=== PATIENT | female | born 1955 | race Caucasian/White ===

== ENCOUNTER → 2017-04-13 | Outpatient (CLI) | payer MEDICARE ==
[~2017-04-13] MED LIST: ALPRAZOLAM0.25 MG PO; HYDROCODON-ACE1 EAC9 PO; METOPROLOL TART50 MG PO; REGADENOSON 0.4 MG/5 ML SYR IV ONE; WARFARIN SODIUM3 MG PO
--- NOTE | 2017-04-13 10:51 | Consultation ---
Incomplete dictation. See full dictation. Job#: [id number] RI cc: HELDER JENKINS MD MTDAnn
--- NOTE | 2017-04-13 11:07 | Consultation ---
DATE OF CONSULTATION: April 13, 2017 CARDIOLOGY CONSULTATION REQUESTING PHYSICIAN: Fabien Shen MD REASON FOR CONSULTATION: Abnormal EKG. HISTORY OF PRESENT ILLNESS: This is a 61-year-old woman who has a history of hypertension, hyperlipidemia, diabetes mellitus, and anxiety, who presents for a nuclear stress test. She was undergoing preop evaluation for a cochlear implant when she was noted to have an abnormal EKG. She was, therefore, sent for a nuclear stress test. She denies any chest pain, shortness of breath, palpitations, edema, orthopnea or PND. REVIEW OF SYSTEMS: Negative, except as per HPI. PAST MEDICAL HISTORY: Hypertension, hyperlipidemia, diabetes mellitus, anxiety, chronic kidney disease. PAST SURGICAL HISTORY: Hernia surgery, cholecystectomy, nose surgery, right hip surgery, bilateral knee surgery. ALLERGIES: PLEASE SEE EMR. MEDICATIONS: Please see medication list. SOCIAL HISTORY: Denies tobacco, alcohol, or illicit drugs. FAMILY HISTORY: Unknown. The patient was adopted. PHYSICAL EXAMINATION Vitals reviewed. GENERAL: Awake, alert, in no acute distress. HEENT: Normocephalic and atraumatic. Pupils are equal. No scleral icterus. NECK: Supple. No thyromegaly or cervical lymphadenopathy. No carotid bruit. LUNGS: Clear to auscultation bilaterally. No wheezes or crackles. CARDIOVASCULAR: Normal rate, regular rhythm. A 2/6 systolic murmur noted at the right upper sternal border. Normal S1 and S2. ABDOMEN: Soft. Nontender. EXTREMITIES: No edema. NEURO: Nonfocal exam. Extremely hard of hearing. IMPRESSION 1. Abnormal electrocardiogram. 2. Hypertension. 3. Hyperlipidemia. 4. Diabetes mellitus. RECOMMENDATIONS: Given the patient's risk factors, we will proceed with pharmacologic nuclear stress test for further evaluation. Consider echocardiogram. Thank you for this consult. We will continue to follow. RAUDEL BUSBY MD Job#: [id number] JONNIE
--- NOTE | 2017-04-13 16:21 | Cardiology Report ---
DATE OF STUDY: April 13, 2017 PROCEDURE TITLE Rest stress single isotope SPECT imaging with pharmacologic stress and gated SPECT imaging. INDICATIONS: Abnormal EKG. PROCEDURE: Pharmacologic stress testing was performed with regadenoson per protocol. Heart rate was 82 beats per minute at rest and increased to 117 beats per minute during the regadenoson infusion. The rest blood pressure was 130/80 and decreased to 99/62 mmHg, which is a normal response. The patient did not develop any significant symptoms. The myocardial perfusion imaging was performed at rest following the injection of 10.8 mCi of tetrofosmin. At peak pharmacologic effect the patient was injected with 30.1 mCi of tetrofosmin. Gated post stress tomographic imaging was performed. FINDINGS: Overall quality of this study is fair. Attenuation artifact is absent. Left ventricular cavity is noted to be normal size on rest and stress studies. SPECT images demonstrate homogenous tracer distribution throughout the myocardium. Gated SPECT imaging reveals normal myocardial thickening and wall motion. The left ventricular ejection fraction was calculated to be 64%. IMPRESSION: Myocardial perfusion imaging is normal. Overall left ventricular systolic function was normal without regional wall motion abnormalities. Job#: [id number] GH cc:HELDER JENKINS MD
== END ==
LOC: NM 07:39
PROVIDERS: ATTEND Family Medicine
DX: Z01.810 Encounter for preprocedural cardiovascular examination (principal)
CPT/HCPCS: 78452; 93017; A9502

== ENCOUNTER 2018-07-20 05:06 | Emergency (ER) | payer MEDICARE ==
[~2018-07-20] VITALS: Ht 152.4 cm; Wt 77.1 kg
[~2018-07-20 05:06] MED LIST changes: -REGADENOSON 0.4 MG/5 ML SYR IV ONE
--- OUTSIDE RECORDS SUMMARY | 2018-07-20 05:10 | XMS REPORT ---
Author Author [facility] [place] Address Unknown Phone Unavailable Care Team Providers Care Bilingual Legal Assistant Name Role Phone Mel JENKINS Unavailable Unavailable Problems This patient has no known problems. Allergies, Adverse Reactions, Alerts This patient has no known allergies or adverse reactions. Medications This patient has no known medications. Results Test Description Test Time Test Comments Text Results Atomic Results Result Comments Stress Test - Treadmill ONLY [place] [address] Patient Name : KATE RICO MR #: [id number] : 1955 Age/Sex: 61/F Adm Physician : HELDER JENKINS MD Admit Date : Location : [place] Room/Bed : REPORT: Cardiology Report DATE OF STUDY: April 13, 2017 PROCEDURE TITLE Rest stress single isotope SPECT imaging with pharmacologic stress and gated SPECT imaging. INDICATIONS: Abnormal EKG. PROCEDURE: Pharmacologic stress testing was performed with regadenoson per protocol. Heart rate was 82 beats per minute at rest and increased to 117 beats per minute during the regadenoson infusion. The rest blood pressure was 130/80 and decreased to 99/62 mmHg, which is a normal response. The patient did not develop any significant symptoms. The myocardial perfusion imaging was performed at rest following the injection of 10.8 mCi of tetrofosmin. At peak pharmacologic effect the patient was injected with 30.1 mCi of tetrofosmin. Gated post stress tomographic imaging was performed. FINDINGS: Overall quality of this study is fair. Attenuation artifact is absent. Left ventricular cavity is noted to be norm al size on rest and stress studies. SPECT images demonstrate homogenous tracer distribution throughout the myocardium. Gated SPECT imaging reveals normal myocardial thickening and wall motion. The left ventricular ejection fraction was calculated to be 64%. IMPRESSION: Myocardial perfusion imaging is normal. Overall left ventricular systolic function was normal without regional wall motion abnormalities. Job#: [id number] GH cc: HELDER JENKINS MD Signature Date Dictated By: RAUDEL BUSBY MD Transcribed By: PATRICIO on 04/13/17 <Electronically signed by RAUDEL BUSBY MD><<Signature on File>>05/17/17 1065 COPY TO:
== END 2018-07-20 05:21 | disposition left against medical advice (07) ==
LOC: ER 05:06
DX: R52 Pain, unspecified (principal)

== ENCOUNTER 2018-07-20 10:48 | Emergency (ER) | payer MEDICARE ==
[~2018-07-20] VITALS: Ht 152.4 cm; Wt 77.1 kg
== END 2018-07-20 11:14 | disposition left against medical advice (07) ==
LOC: ER 10:48
DX: R52 Pain, unspecified (principal)

== ENCOUNTER 2018-07-23 16:10 | Observation (INO) | payer MEDICARE ==
[~2018-07-23] VITALS: Ht 152.4 cm; Wt 66.3 kg
[2018-07-23] MEDS ORDERED: DIATRIZOATE MEGL/DIATRIZOA SOD 30 ML BTL PO ONE (16:41)
[2018-07-23] MEDS ORDERED: SODIUM CHLORIDE 0.9% 500ML 500 ML IV ONE (16:45)
--- NOTE | 2018-07-23 16:59 | Diagnostic Imaging Report ---
Examination: Single AP view of the chest. COMPARISON: None. INDICATION: Abdominal pain DISCUSSION: Lines/tubes: None. Lungs: The lungs are well inflated and clear. No pneumonia or pulmonary edema. Pleura: Left-sided pleural thickening. No pneumothorax. Heart and mediastinum: The heart and the mediastinum are unremarkable. Bones and soft tissues: Prior left chest wall deformity IMPRESSION: 1. No acute cardiopulmonary abnormalities. Signed by: Dr. Bari Joy M.D. on 07/23/2018 4:56 PM
[2018-07-23 18:45] LABS: BASOPHILS # (AUTO) 0.1 (0.0-0.1); BASOPHILS % 0.2 % (0.0-1.0); EOSINOPHILS # (AUTO) 0.1 (0.0-0.4); EOSINOPHILS % 0.3 % (0.0-6.0); HEMATOCRIT 41.3 % (34.2-44.1); LYMPHOCYTES # (AUTO) 1.4 (1.0-3.2); LYMPHOCYTES % 6.1 % (18.0-39.1); MEAN CORPUSCULAR HEMOGLOBIN 32.4 pg (28-32); MEAN CORPUSCULAR HGB CONC 33.9 g/dL (31-35); MEAN CORPUSCULAR VOLUME 95.6 fL (81-99); MONOCYTES # (AUTO) 1.2 (0.2-0.8); MONOCYTES % 5.3 % (4.4-11.3); NEUTROPHILS # (AUTO) 19.6 (2.1-6.9); NEUTROPHILS % 87.4 % (38.7-80.0); PLATELET COUNT 283 x10e3/uL (140-360); RED BLOOD COUNT 4.32 x10e6/uL (3.6-5.1); RED CELL DISTRIBUTION WIDTH 12.7 % (11.7-14.4)
[2018-07-23 18:54] LABS: INR 0.81; PROTHROMBIN TIME 11.7 seconds (11.9-14.5)
[2018-07-23 18:55] LABS: PARTIAL THROMBOPLASTIN TIME 27.6 seconds (23.8-35.5)
[2018-07-23 19:03] LABS: ALBUMIN 3.9 g/dL (3.5-5.0); ALBUMIN/GLOBULIN RATIO 1.3 (0.8-2.0); CALCIUM 9.8 mg/dL (8.4-10.2); CREATININE, SERUM 1.98 mg/dL (0.57-1.11); MAGNESIUM 2.1 MG/DL (1.3-2.1)
[2018-07-23 19:09] LABS: CREATINE KINASE MB 9.4 ng/mL (0-5.0)
[2018-07-23 19:30] LABS: BILIRUBIN,URINE NEGATIVE (NEGATIVE); CLARITY,URINE CLEAR (CLEAR); COLOR,URINE YELLOW (YELLOW); KETONES,URINE NEGATIVE (NEGATIVE); LEUKOCYTE ESTERASE ,URINE NEGATIVE (NEGATIVE); NITRITE,URINE NEGATIVE (NEGATIVE); PROTEIN,URINE DIPSTICK TRACE (NEGATIVE); URINE UROBILINOGEN 0.2 mg/dL (0.2 - 1)
[2018-07-23 19:46] LABS: BACTERIA,URINE FEW /HPF; EPITHELIAL CELLS,URINE FEW /LPF; RBC,URINE 0-5 /HPF (0-5)
--- NOTE | 2018-07-23 19:56 | Diagnostic Imaging Report ---
EXAMINATION: CT of the abdomen and pelvis without contrast. TECHNIQUE: Helical CT images of the abdomen and pelvis were performed from the lung bases to the lesser trochanters. No intravenous contrast was given per protocol. Positive enteric contrast administered. Coronal and sagittal reformatted images were obtained.Dose modulation, iterative reconstruction, and/or weight based adjustment of the mA/kV was utilized to reduce the radiation dose to as low as reasonably achievable. COMPARISON: None. CLINICAL HISTORY:Abdominal pain DISCUSSION: ABSENCE OF INTRAVENOUS CONTRAST DECREASES SENSITIVITY FOR DETECTION OF FOCAL LESIONS AND VASCULAR PATHOLOGY. ABDOMEN/PELVIS: LOWER THORAX: Unremarkable. HEPATOBILIARY:No focal hepatic lesions. No biliary ductal dilatation. Cholecystectomy. SPLEEN: No splenomegaly. PANCREAS: No focal masses or ductal dilatation. ADRENALS: No adrenal nodules. KIDNEYS/URETERS: Atrophic kidneys. No obstruction. Subcentimeter hyperdense cyst in the left kidney. PELVIC ORGANS/BLADDER: Bladder is decompressed. Hysterectomy. PERITONEUM/RETROPERITONEUM: No free air or fluid. LYMPH NODES: No intra-abdominal,retroperitoneal, pelvic or inguinal lymphadenopathy. VESSELS: Vascular calcifications. GI TRACT: No distention or wall thickening. BONES AND SOFT TISSUES: Right total hip arthroplasty. Left hip degenerative arthrosis. Bone demineralization. Lower lumbar facet arthrosis. IMPRESSION: No acute CT finding. Signed by: Dr. Bari Joy M.D. on 07/23/2018 7:53 PM
[2018-07-23] MEDS ORDERED: SODIUM CHLORIDE 0.9% 1000ML 1,000 ML IV ONE (20:30)
[2018-07-23] MEDS ORDERED: ASPIRIN 81 MG CHEW TAB PO NR (20:30)
[2018-07-23] MEDS ORDERED: SUCRALFATE1 GM PO (22:02)
[2018-07-23] MEDS ORDERED: TEMAZEPAM30 MG PO (22:02)
[2018-07-23] MEDS: MORPHINE SULFATE INJ 4 MG/ML INJ 1ML IV PRN (22:14)
[2018-07-23] MEDS: PIPERACILLIN/TAZO 2.25 GM 50 ML IV SCH ×2 (22:14→22:42)
[2018-07-23] MEDS: ONDANSETRON HCL INJ 2MG/ML 2ML 2 MG/ML VIAL IV PRN (22:15)
--- NOTE | 2018-07-23 23:14 | NUR ---
Received report from [facility] ER nurse. Patient arrived via stretcher from CT. Patient is A&Ox3. Call light within reach.
--- NOTE | 2018-07-23 23:43 | Diagnostic Imaging Report ---
EXAM: CT Chest WITHOUT contrast INDICATION: ^R/O PNA ^[id number] ^2300 COMPARISON: Same day chest x-ray. TECHNIQUE: Chest was scanned utilizing a multidetector helical scanner from the lung apex through the level of the adrenal glands without administration of IV contrast. Absence of intravenous contrast decreases sensitivity for detection of lymphadenopathy and vascular pathology. Coronal and sagittal reformations were obtained. Routine protocol was performed. IV CONTRAST: None COMPLICATIONS: None RADIATION DOSE: Total DLP: mGy*cm Estimated effective dose: (DLP x 0.014 x size factor) mSv CTDIvol has been reviewed. It is below the limits set by the Radiation Protocol Committee (RPC). FINDINGS: LINES/ TUBES: None. LUNGS AND AIRWAYS: Hyperinflated lungs. Mild biapical scarring. Few tiny scattered calcified granulomas are seen. No focal consolidation. Bibasilar linear atelectasis/scarring. Airways are normal. PLEURA: The pleural spaces are clear. HEART AND MEDIASTINUM: Subcentimeter right thyroid lobe nodule. No mediastinal, hilar or axillary lymphadenopathy. The heart is normal in size.. There is no pericardial effusion. There are significant atherosclerotic calcifications in the coronary arteries. UPPER ABDOMEN: Hepatic and splenic calcified granulomas. Subcentimeter left renal superior pole hyperdensity, likely a hemorrhagic/proteinaceous cyst. Punctate left renal superior pole calculus. BONES: Generalized demineralization. Exaggerated kyphosis of the thoracic spine. Degenerative changes of thoracic spine. SOFT TISSUES: Unremarkable. IMPRESSION: No evidence of pneumonia. Evidence of prior granulomatous disease. Signed by: Dr. Jose Cox MD on 07/23/2018 11:40 PM
[2018-07-23] MEDS ORDERED: TIZANIDINE HCL4 MG PO (23:58)
[2018-07-23] MEDS ORDERED: ONDANSETRON ODT8 MG PO (23:58)
[2018-07-24] VITALS (10 sets, daily range): BP systolic 98–136; BP diastolic 55–64
[2018-07-24] MEDS: ONDANSETRON HCL INJ 2MG/ML 2ML 2 MG/ML VIAL IV PRN ×2 (02:58→17:50)
[2018-07-24 03:19] LABS: ALBUMIN/GLOBULIN RATIO 1.3 (0.8-2.0); ANION GAP 13.1 mmol/L (8-16); CALCIUM 8.7 mg/dL (8.4-10.2); CREATININE, SERUM 1.75 mg/dL (0.57-1.11); POTASSIUM 4.1 mmol/L (3.5-5.1)
[2018-07-24 03:20] LABS: ALBUMIN 3.1 g/dL (3.5-5.0)
[2018-07-24] MEDS: MORPHINE SULFATE INJ 4 MG/ML INJ 1ML IV PRN (04:05)
[2018-07-24 04:31] LABS: CREATINE KINASE MB 4.7 ng/mL (0-5.0)
[2018-07-24 05:26] LABS: BASOPHILS % 0.2 % (0.0-1.0); EOSINOPHILS % 0.3 % (0.0-6.0); HEMATOCRIT 33.4 % (34.2-44.1); LYMPHOCYTES # (AUTO) 1.1 (1.0-3.2); LYMPHOCYTES % 8.9 % (18.0-39.1); MEAN CORPUSCULAR HEMOGLOBIN 32.2 pg (28-32); MEAN CORPUSCULAR HGB CONC 32.9 g/dL (31-35); MEAN CORPUSCULAR VOLUME 97.7 fL (81-99); MONOCYTES # (AUTO) 1.2 (0.2-0.8); MONOCYTES % 9.7 % (4.4-11.3); NEUTROPHILS % 80.2 % (38.7-80.0); PLATELET COUNT 216 x10e3/uL (140-360); RED BLOOD COUNT 3.42 x10e6/uL (3.6-5.1); RED CELL DISTRIBUTION WIDTH 12.8 % (11.7-14.4)
[2018-07-24] MEDS: PIPERACILLIN/TAZO 2.25 GM 50 ML IV SCH ×4 (05:35→23:34)
--- NOTE | 2018-07-24 07:04 | NUR ---
Got report from oncoming nurse. Call light within reach. patient in bed.
--- NOTE | 2018-07-24 07:45 | NUR ---
GAVE REPORT TO ONCOMING NURSE. CALL LIGHT WITHIN REACH. PATIENT IN BED.
--- NOTE | 2018-07-24 08:32 | History and Physical ---
A 63-year-old lady with abdominal pain. HISTORY OF PRESENTING ILLNESS: This is a 63-year-old MsBolivar Esposito with a history of hypertension, hyperlipidemia, history of hard of hearing, and low back pain and DVTs, was in the usual state of health until the patient started to have abdominal pain, intractable 8/10 in intensity. She was told to come into the ER. The patient was admitted for leukocytosis and antibiotics were started. The patient's microbiology is pending. PAST MEDICAL HISTORY: Again hypertension, history of reflux esophagitis, history of insomnia, history of anxiety, and history of DVTs in the past. MEDICINES: She takes at home are alprazolam 0.25 mg twice a day, hydrocodone as needed, metoprolol 50 mg q.12 hours as needed, Carafate 1 g twice a day, temazepam 30 mg at nighttime, and warfarin 3 mg daily. PAST SURGICAL HISTORY: History of bilateral mastectomy, cholecystectomy, left knee surgery, and tonsillectomy. FAMILY HISTORY: Cancer and diabetes and also history of hypertension in the family. ADVERSE REACTIONS: The patient has azithromycin and also tetracycline. REVIEW OF SYSTEMS: Negative for chest pain. Positive for abdominal pain. Positive for nausea. No vomiting. No diarrhea. No constipation. No rectal bleeding. No hematochezia. No hematemesis. Positive for multiple arthritic pains and arthralgias. The patient complains of low back pain too. PHYSICAL EXAMINATION: VITAL SIGNS: Temperature is 96.7, pulse of 79, respirations of 18, blood pressure is 98/58 at this time after pain medications has been given. CVS: S1, S2 normal. Regular rate and rhythm. LUNGS: Clear to auscultation bilaterally. ABDOMEN: Tender in the epigastrium. EXTREMITIES: No clubbing, no cyanosis, no edema. LABORATORY VALUES: Initial white count is 22,000 down to 12.53. There was left shift present, is better with Zosyn. Chemistries; sodium 136, potassium 4.0, BUN of 32, creatinine of 1.9, and estimated GFR of 25. Coags were normal. CT scan of chest showed no evidence of pneumonia, evidence of prior granulomatous diseases, and abdominal CT shows no acute CT findings either. ASSESSMENT: 1. Leukocytosis, abdominal pain. 2. Blood cultures are pending. Urine cultures pending. Urine was essentially negative too. 3. History of hypertension. Continue antihypertensive. 4. History of back pain. We will monitor her pain medication and watch for hypertensive episode. PLAN: 1. Continue Zosyn, which she has been started for leukocytosis and abdominal pain. 2. Follow up with microbiology results. Plan is to keep the patient on observation still and depending on her blood work tomorrow, we will continue to monitor the patient. Further recommendation per clinical course. MD KATHARINA Reyes/MODL /[id number]
[2018-07-24] MEDS ORDERED: PANTOPRAZOLE 40 MG 10ML VIAL IV SCH (09:00)
--- NOTE | 2018-07-24 09:59 | Diagnostic Imaging Report ---
EXAM: US GALLBLADDER DATE: 07/24/2018 7:00 AM Time stamp on exam: INDICATION: Upper abdominal pain, leukocytosis COMPARISON: CT abdomen and pelvis 07/23/2018 TECHNIQUE: Transverse and longitudinal lopez scale and color doppler sonographic images of the upper abdomen were obtained. FINDINGS: LIVER 11 cm in the right midclavicular line. Normal echogenicity, normal contour, no masses. GALLBLADDER Surgically absent. BILE DUCTS No intra nor extra-hepatic biliary dilation. Common bile duct measures 0.4 cm PANCREAS: Visualized portions are normal. RIGHT KIDNEY: 8.5 cm Echogenicity: Normal Collecting System: No hydronephrosis Stones: None Cyst/Mass: None VESSELS: Aorta: Nonaneurysmal Inferior Vena Cava: Patent Main Portal Vein: 0.8 cm, normal size with hepatopetal flow. FREE FLUID: None IMPRESSION: Status post cholecystectomy. Diminutive right kidney. Otherwise unremarkable right upper quadrant ultrasound. Signed by: Dr. Gurinder Mccauley M.D. on 07/24/2018 9:56 AM
[2018-07-24] MEDS ORDERED: DIPHENOXYLATE/ATROPINE TAB PO PRN (11:15)
[2018-07-24 12:11] LABS: CREATINE KINASE MB 3.6 ng/mL (0-5.0)
[2018-07-24] MEDS ORDERED: PANTOPRAZOLE INJ 40 MG in SODIUM CHLORIDE 0.9% 50ML 50 ML IV SCH (18:00)
--- NOTE | 2018-07-24 18:40 | NUR ---
rounded with night shift supervisor nurse, patient resting comfortably and in no distress. call david within reach and bed in lowest position.
[2018-07-24] MEDS: PANTOPRAZOL 40MG/SOD CHL 0.9% 50 ML IV SCH ×2 (19:07→21:48)
[2018-07-24] MEDS: SUCRALFATE 1 GM TAB PO SCH (21:04)
[2018-07-25] VITALS: BP 102/53
[2018-07-25 04:00] VITALS: BP 115/58
[2018-07-25] MEDS: PANTOPRAZOL 40MG/SOD CHL 0.9% 50 ML IV SCH (04:10)
[2018-07-25] MEDS: PIPERACILLIN/TAZO 2.25 GM 50 ML IV SCH (05:03)
[2018-07-25] MEDS: MORPHINE SULFATE INJ 4 MG/ML INJ 1ML IV PRN (05:28)
[2018-07-25 06:11] LABS: BASOPHILS % 0.3 % (0.0-1.0); EOSINOPHILS # (AUTO) 0.1 (0.0-0.4); EOSINOPHILS % 0.9 % (0.0-6.0); HEMATOCRIT 35.7 % (34.2-44.1); HEMOGLOBIN 11.7 g/dL (12.0-16.0); LYMPHOCYTES # (AUTO) 1.2 (1.0-3.2); LYMPHOCYTES % 11.4 % (18.0-39.1); MEAN CORPUSCULAR HEMOGLOBIN 32.1 pg (28-32); MEAN CORPUSCULAR HGB CONC 32.8 g/dL (31-35); MEAN CORPUSCULAR VOLUME 97.8 fL (81-99); MONOCYTES # (AUTO) 1.1 (0.2-0.8); MONOCYTES % 10.7 % (4.4-11.3); NEUTROPHILS % 76.1 % (38.7-80.0); PLATELET COUNT 237 x10e3/uL (140-360); RED BLOOD COUNT 3.65 x10e6/uL (3.6-5.1); RED CELL DISTRIBUTION WIDTH 12.7 % (11.7-14.4)
[2018-07-25 06:27] LABS: INR 0.92; PROTHROMBIN TIME 12.9 seconds (11.9-14.5)
[2018-07-25 06:34] LABS: ALBUMIN 3.2 g/dL (3.5-5.0); ALBUMIN/GLOBULIN RATIO 1.2 (0.8-2.0); ANION GAP 12.6 mmol/L (8-16); CALCIUM 9.3 mg/dL (8.4-10.2); CREATININE, SERUM 1.71 mg/dL (0.57-1.11); MAGNESIUM 2.1 MG/DL (1.3-2.1); POTASSIUM 4.6 mmol/L (3.5-5.1)
--- NOTE | 2018-07-25 06:45 | NUR ---
rounded with library helper nurse, patient aware of change and in no distress. call david within reach and bed in lowest position
--- NOTE | 2018-07-25 07:13 | Progress Note ---
DATE: SUBJECTIVE: A 63-year-old comes in with acute enteritis and colitis. The patient is currently on Lomotil. Diarrhea has stopped. The patient was on Zofran for nausea and nausea has dissipated. Continuous pantoprazole drip and Zosyn have been reinstituted. The patient is also on Carafate 1 g three times a day. OBJECTIVE: VITAL SIGNS: Temperature is 98.5, pulse of 72, blood pressure is 115/58. HEENT: Normocephalic, atraumatic. Pupils are reactive to light and accommodation. CVS: S1 and S2 normal. Regular rate and rhythm. ABDOMEN: Tender in the epigastrium, but decreased in intensity. EXTREMITIES: No clubbing, no cyanosis, no edema. LABORATORY VALUES: Today's white count is 10.48, hemoglobin 11.7, hematocrit 35.7. Coags normal. Microbiology, no growth in blood cultures. Urine culture preliminary shows culture in progress to incubation required. The patient's chemistry shows sodium 134, potassium 4.1, BUN of 30, creatinine of 1.75 yesterday, estimated GFR of 29. Troponins were within normal limits. Amylase and lipase normal. ASSESSMENT: Probable viral gastroenteritis, leukocytosis, hypotension, history of back pain, and ueiul-bi-anatedu chronic renal failure. PLAN: At this time, continue with . Awaiting blood count from creatinine today. We will continue monitoring her microbiology results. The patient has responded very well to Zosyn, possibly advance diet and discharge in the afternoon today if diet tolerated. We will follow up with labs and urine culture at the clinic. The patient is symptomatically better. Further recommendation as an outpatient. We will discharge the patient depending on tolerance of diet. MD KATHARINA Reyes/JOSE /[id number]
[2018-07-25 07:45] VITALS: BP 108/56
[2018-07-25] MEDS: SUCRALFATE 1 GM TAB PO SCH (07:45)
[2018-07-25 08:20] VITALS: BP 136/81
[2018-07-25 08:22] VITALS: BP 108/56
[2018-07-25] MEDS ORDERED: KEFLEX500 MG PO (08:35)
[2018-07-25] MEDS ORDERED: PANTOPRAZOLE SO40 MG PO (08:36)
[2018-07-25] MEDS ORDERED: PROMETHAZINE HC25 M1 PO (08:36)
[2018-07-25] MEDS ORDERED: CARAFATE1 GM/10 ML PO (08:37)
--- NOTE | 2018-07-25 08:50 | NUR ---
patient alert and oriented, at the bedside. discharge instructions given to patient at this time, both verbalized understanding. IV discontinued, catheter in tact and small dressing applied. Patient to be wheeled to personal auto for to drive home.
== END 2018-07-25 08:56 | disposition home or self-care (01) ==
LOC: ER 16:10 → ERHOLD 20:28 → IMCU 23:16
PROVIDERS: ADMIT Family Medicine; ATTEND Family Medicine
DX: K52.9 Noninfective gastroenteritis and colitis, unspecified (principal); E78.5 Hyperlipidemia, unspecified; Z86.718 Personal history of other venous thrombosis and embolism; Z79.01 Long term (current) use of anticoagulants; H91.90 Unspecified hearing loss, unspecified ear; D72.829 Elevated white blood cell count, unspecified; N17.9 Acute kidney failure, unspecified; S29.012A Strain of muscle and tendon of back wall of thorax, initial encounter; G47.00 Insomnia, unspecified; F41.9 Anxiety disorder, unspecified; I12.9 Hypertensive chronic kidney disease with stage 1 through stage 4 chronic kidney disease, or unspecified chronic kidney disease; N18.9 Chronic kidney disease, unspecified
CPT/HCPCS: 36415 ×3; 71045; 71250; 74176; 76705; 80053 ×3; 81001; 82150 ×2; 82550 ×2; 82553 ×2; 83605; 83690 ×2; 83735 ×2; 84484 ×2; 85025 ×3; 85610 ×2; 85730; 87040; 87086; 93005; 96374; 96375; 99284; C9113; G0378 ×3; J2270 ×3; J2405 ×2; J2543 ×3; J7030; J7040

== ENCOUNTER 2018-08-03 19:04 | Emergency (ER) | payer MEDICARE ==
[~2018-08-03] VITALS: Ht 152.4 cm; Wt 66.2 kg
[~2018-08-03 19:04] MED LIST changes: +CARAFATE1 GM/10 ML PO; +KEFLEX500 MG PO; +ONDANSETRON ODT8 MG PO; +PANTOPRAZOLE SO40 MG PO; +PROMETHAZINE HC25 M1 PO; +SUCRALFATE1 GM PO; +TEMAZEPAM30 MG PO; +TIZANIDINE HCL4 MG PO
--- NOTE | 2018-08-03 20:12 | Diagnostic Imaging Report ---
CT BRAIN WO HISTORY: Trauma COMPARISON: Concurrent cervical spine CT Technique: Noncontrast axial scans were obtained from skull base to the vertex. Coronal and sagittal reconstructions obtained from the axial data. One or more of the following dose reduction techniques were used: Automated exposure control, adjustment of the mA and/or kV according to patient size, and/or utilization of iterative reconstruction technique. DISCUSSION: Streak artifacts obscure some details, mainly adjacent to the cochlear implant. Beam hardening artifact at the level of the skull base also obscures some details. Scalp/Skull: Right frontal scalp hematoma is present. No associated calvarial fracture is seen. Right-sided cochlear implant is in place. Bilateral wall down mastoidectomy changes are present. Opacification of the right mastoidectomy defect and thin reticular densities within the left mastoidectomy defect are nonspecific. Brain sulci: Mildly prominent. Ventricles: Compensatory dilatation. Extra-axial spaces: Trace subarachnoid hemorrhage is seen along the right frontal convexity. Small, thin crescentic, hyperdense collection along the right frontal convexity measures up to 2 mm in thickness and does not exert significant mass effect; this is a suspected acute subdural hematoma. No additional masses or fluid collections. Carotid siphon calcifications are present. Parenchyma: No definite parenchymal hemorrhage is seen; however, visualization of the right anterior temporal pole is limited. Mild bilateral deep white matter hypodensity is likely chronic microvascular ischemic change. Small round hypodense lesion in the posterior right redding radiata may be a prominent perivascular space or old lacunar infarct. Otherwise, no masses, or large vascular territory acute infarct. Dural sinuses: No abnormal densities. Sellar/Suprasellar region: Intact. Skull base: Intact. Incidental findings: Mild left maxillary sinus mucosal thickening is partially visualized. IMPRESSION: Limited exam due to streak and beam hardening artifacts. Visualization of the right temporal pole is limited. In spite of limitations: 1. Small right frontal convexity acute subdural hematoma. Associated trace subarachnoid hemorrhage along the right frontal convexity. No significant mass effect. No other definite acute intracranial abnormalities. These findings were discussed with Dr. Funez at 8:19 PM on 08/03/2018 (by Dr. Zavala). 2. Mild supratentorial chronic microvascular ischemic change. Mild generalized cerebral volume loss. 3. Small round hypodense lesion in the posterior right redding radiata may be a prominent perivascular space or old lacunar infarct. 4. Right-sided cochlear implant in place. Bilateral mastoidectomy changes as described above. Signed by: Dr. Gustabo Zavala M.D. on 08/03/2018 8:20 PM
--- NOTE | 2018-08-03 20:20 | Diagnostic Imaging Report ---
CT CERVICAL SPINE WO HISTORY: Trauma COMPARISON: Concurrent head CT TECHNIQUE: CT of the cervical spine without contrast. Sagittal and coronal reformations were created. One or more of the following dose reduction techniques were used: Automated exposure control, adjustment of the mA and/or kV according to patient size, and/or utilization of iterative reconstruction technique. FINDINGS: Bone demineralization limits evaluation. Cervical lordosis is slightly straightened. There is no scoliosis or subluxation. No definite acute fracture or compression deformity is seen. Small corticated osseous fragment at the odontoid tip may be an os odontoideum or old odontoid fracture fragment. Associated mild atlantoaxial arthrosis is present. The craniocervical junction is otherwise intact. No gross spinal canal masses are seen. The paravertebral and paraspinal soft tissues are unremarkable. Mild multilevel spondylosis is most prominent at C5-C6. Mild scarring in the lung apices. Mild right and moderate left carotid bulb calcified plaque is present. Partially visualized small retention cyst in the left maxillary sinus. IMPRESSION: No acute osseous abnormalities. Mild multilevel spondylosis, most prominent at C5-C6. Signed by: Dr. Gustabo Zavala M.D. on 08/03/2018 8:17 PM
--- NOTE | 2018-08-03 20:24 | NUR ---
TRANSFER INITIATED TO [facility], SPOKE TO JENNIFER
--- NOTE | 2018-08-03 20:50 | Diagnostic Imaging Report ---
ELBOW RIGHT COMPLETE - views HISTORY: Pain status post fall COMPARISON: None available. FINDINGS: Bones: There is marked deformity of the distal humeral epiphysis, with remodeling which may reflect chronic fracture. There is some cortical irregularity on the lateral region suggestive of superimposed nondisplaced fracture. Joints: Degenerative changes of the elbow joint. Soft tissues: Marked soft tissue swelling about the elbow, possibly hematoma. IMPRESSION: Findings suggestive of acute nondisplaced supracondylar fracture of the distal humerus superimposed on remote fracture deformity. Signed by: Dr. Joyce Mcintosh M.D. on 08/03/2018 8:46 PM
--- NOTE | 2018-08-03 20:55 | Diagnostic Imaging Report ---
SHOULDER RIGHT COMPLETE - 3 views HISTORY: Pain status post fall COMPARISON: None available. FINDINGS: Bones: No acute displaced fracture. Osseous alignment is within normal limits. Joints: Mild degenerative changes of the glenohumeral and AC joints. Soft tissues: The soft tissues appear unremarkable. IMPRESSION: No acute radiographic abnormality. Signed by: Dr. Joyce Mcintosh M.D. on 08/03/2018 8:52 PM
--- NOTE | 2018-08-03 20:55 | Diagnostic Imaging Report ---
Bilateral rib series with chest PA 6 views HISTORY: Pain status post fall COMPARISON: None FINDINGS: No displaced fracture. There is deformity of the anterior second and/or third rib on the first oblique view suggestive of a nondisplaced fracture. Osseous alignment is within normal limits. The joint spaces are well-maintained. Left basilar pleural-parenchymal scarring. Spondylosis of the thoracic spine. IMPRESSION: Signs concerning for nondisplaced fracture of the second and/or third anterior rib. Correlate for right upper chest pain. Signed by: Dr. Joyce Mcintosh M.D. on 08/03/2018 8:52 PM
--- NOTE | 2018-08-03 20:58 | Diagnostic Imaging Report ---
PELVIS AP 1-2 VIEWS - 3 views HISTORY: Pain status post fall COMPARISON: None available. FINDINGS: Bones: No acute displaced fracture. Osseous alignment is within normal limits. Joints: Bipolar right hip prosthesis appears grossly intact in this single view. Severe erosive osteoarthrosis of the left hip. Degenerative changes of the lower lumbar spine. Soft tissues: The soft tissues appear unremarkable. IMPRESSION: No acute radiographic abnormality. Severe erosive osteoarthrosis of the left hip. Signed by: Dr. Joyce Mcintosh M.D. on 08/03/2018 8:55 PM
[2018-08-03 20:59] LABS: BASOPHILS % 0.3 % (0.0-1.0); EOSINOPHILS # (AUTO) 0.1 (0.0-0.4); EOSINOPHILS % 0.7 % (0.0-6.0); HEMATOCRIT 36.7 % (34.2-44.1); HEMOGLOBIN 12.1 g/dL (12.0-16.0); LYMPHOCYTES # (AUTO) 0.8 (1.0-3.2); LYMPHOCYTES % 7.5 % (18.0-39.1); MEAN CORPUSCULAR HEMOGLOBIN 32.2 pg (28-32); MEAN CORPUSCULAR VOLUME 97.6 fL (81-99); MONOCYTES % 8.4 % (4.4-11.3); NEUTROPHILS # (AUTO) 9.3 (2.1-6.9); NEUTROPHILS % 82.5 % (38.7-80.0); PLATELET COUNT 294 x10e3/uL (140-360); RED BLOOD COUNT 3.76 x10e6/uL (3.6-5.1); RED CELL DISTRIBUTION WIDTH 12.7 % (11.7-14.4)
--- NOTE | 2018-08-03 21:13 | NUR ---
[facility] CALLED FOR TRANSPORT
[2018-08-03 21:15] LABS: INR 0.84
[2018-08-03 21:16] LABS: PARTIAL THROMBOPLASTIN TIME 30.4 seconds (23.8-35.5)
[2018-08-03 21:20] VITALS: BP 138/92
[2018-08-03 21:23] LABS: ALBUMIN 3.5 g/dL (3.5-5.0); ALBUMIN/GLOBULIN RATIO 1.1 (0.8-2.0); ANION GAP 14.3 mmol/L (8-16); CALCIUM 9.5 mg/dL (8.4-10.2); CREATININE, SERUM 2.12 mg/dL (0.57-1.11); POTASSIUM 4.3 mmol/L (3.5-5.1)
--- NOTE | 2018-08-03 21:38 | NUR ---
[facility] arrived for transport. bedside report given. paperwork [facility]. vs assessed and documented.
== END 2018-08-03 21:44 | disposition other institution (70) ==
LOC: ER 19:04
DX: S06.5X0A Traumatic subdural hemorrhage without loss of consciousness, initial encounter (principal); W01.198A Fall on same level from slipping, tripping and stumbling with subsequent striking against other object, initial encounter; Y93.01 Activity, walking, marching and hiking; Y92.019 Unspecified place in single-family (private) house as the place of occurrence of the external cause; S06.6X0A Traumatic subarachnoid hemorrhage without loss of consciousness, initial encounter; S42.414A Nondisplaced simple supracondylar fracture without intercondylar fracture of right humerus, initial encounter for closed fracture; I13.0 Hypertensive heart and chronic kidney disease with heart failure and stage 1 through stage 4 chronic kidney disease, or unspecified chronic kidney disease; I50.9 Heart failure, unspecified; N18.9 Chronic kidney disease, unspecified; F41.9 Anxiety disorder, unspecified; Z88.8 Allergy status to other drugs, medicaments and biological substances
CPT/HCPCS: 36415; 70450; 71101; 71111; 72125; 72170; 80053; 85025; 85610; 85730; 99285

== ENCOUNTER 2018-08-07 23:27 | Emergency (ER) | payer MEDICARE ==
[~2018-08-07] VITALS: Ht 152.4 cm; Wt 66.2 kg
--- OUTSIDE RECORDS SUMMARY | 2018-08-07 23:32 | XMS REPORT | Clinical Summary ---
Author Author JARETH [facility] Address Unknown Phone Unavailable Care Team Providers Care Rubber Press Tender Name Role Phone Fabien Shen MD PCP Allergies Comments Active Allergy Reactions Severity Noted Date Stomach pain Amoxicillin Other (See 08/03/2018 Comments) Macrolide Antibiotics Hives 08/03/2018 Medications End Date Status Medication Sig Dispensed Refills Start Date Active ALPRAZolam (XANAX) 1 MG Take 1 mg by 0 tablet mouth 2 (two) times daily as needed for Anxiety. Active lisinopril Take 5 mg by 0 (PRINIVIL,ZESTRIL) 5 MG mouth daily. tablet Active temazepam (RESTORIL) 30 Take 30 mg by 0 mg capsule mouth every night as needed for Sleep. Active pantoprazole (PROTONIX) Take 40 mg by 0 40 MG tablet mouth daily. Active sucralfate (CARAFATE) 1 Take 1 g by 0 gram tablet mouth daily. Active clopidogrel (PLAVIX) 75 Take 37.5 mg 0 mg tablet by mouth daily. Active fluticasone (VERAMYST) 2 sprays by 0 27.5 mcg/actuation nasal Nasal route spray daily. Active oxybutynin (DITROPAN-XL) Take 10 mg by 0 10 MG 24 hr tablet mouth daily. Active Problems Problem Noted Date SDH (subdural hematoma) 08/04/2018 SAH (subarachnoid hemorrhage) 08/04/2018 TBI (traumatic brain injury) 08/04/2018 Closed fracture of distal end of humerus 08/04/2018 ICH (intracerebral hemorrhage) 08/03/2018 Encounters Care Team Description Date Type Specialty Felipe Loya MD 08/04/2018 Anesthesia Event Ac Munoz MD ORIF,HUMERUS-DISTAL 08/04/2018 Surgery 08/04/2018 Travel Altaf Flores MD Closed fracture of distal end of right humerus, unspecified fracture morphology, initial encounter; SAH (subarachnoid hemorrhage) ([facility]); SDH (subdural hematoma) ([facility]); Traumatic brain injury, without loss of consciousness, initial encounter ([facility]) 08/03/2018 Hospital Intensive Care - Encounter 08/05/2018 08/03/2018 Travel after 08/06/2017 Social History Date Tobacco Use Types Packs/Day Years Used Never Smoker Smokeless Tobacco: Never Used Alcohol Use Drinks/Week oz/Week Comments No Alcohol Habits Answer Date Recorded How often do you have a drink containing alcohol? Never 08/03/2018 How many drinks containing alcohol do you have on Not asked a typical day when you are drinking? How often do you have six or more drinks on one Not asked occasion? Sex Assigned at Date Recorded Not on file Industry Job Start Date Occupation Not on file Not on file Not on file Travel End Travel History Travel Start No recent travel history available. Last Filed Vital Signs Time Taken Vital Sign Reading 08/05/2018 3:05 PM CDT Blood Pressure 118/93 08/05/2018 3:05 PM CDT Pulse 90 08/05/2018 2:10 PM CDT Temperature 36.6 C (97.8 F) 08/05/2018 3:05 PM CDT Respiratory Rate 13 08/05/2018 3:00 PM CDT Oxygen Saturation 100% - Inhaled Oxygen - Concentration 08/05/2018 6:00 AM CDT Weight 68.1 kg (150 lb 2.1 oz) 08/04/2018 12:00 AM CDT Height 152.4 cm (5') 08/05/2018 6:00 AM CDT Body Mass Index 29.32 Plan of Treatment Not on file Implants Device Identifier Shelf Expiration Date Model / Serial / Lot Implanted Type Area Manufactur er / / Scr Silvano Ang T8 Shell 2.7x48mm IMPLANTS Right: Humerus SYNTHES:SY - [id number] NTHES [facility] Implanted: Qty: 1 on 08/04/2018 by Ac Munoz MD / / Scr Lock 20mm 2.7mm Angle IMPLANTS Right: Humerus SYNTHES:SY - [id number] NTHES [place] Implanted: Qty: 1 on 08/04/2018 by Ac Munoz MD 204.824 / / Scr Crtx St D/L/P 3.5x24 Ns IMPLANTS Right: Humerus SYNTHES:SY 204.824 - [id number] [employer] [place] Implanted: Qty: 3 on 08/04/2018 by Ac Munoz MD 204.826 / / Scr Crtx St D/L/P 3.5x26 Ns IMPLANTS Right: Humerus SYNTHES:SY 204.826 - [id number] [employer] [place] Implanted: Qty: 2 on 08/04/2018 by Ac Munoz MD 204.828 / / Scr Crtx St D/L/P 3.5x28 Ns IMPLANTS Right: Humerus SYNTHES:SY 204.828 - [id number] [employer] [place] Implanted: Qty: 1 on 08/04/2018 by Ac Munoz MD [id number] / / [id number] 2.7/3.5 Mm Variable Angle Lcp Right: Humerus Synthes Plates With Lateral Support Implanted: Qty: 1 on 08/04/2018 by Ac Munoz MD [id number] / / [id number] 2.7/3.5 Mm Variable Angle Lcp Right: Humerus Synthes Plates With Lateral Support Implanted: Qty: 1 on 08/04/2018 by Ac Munoz MD [id number] / / Scr Silvano Ang T8 Shell Right: Humerus Synthes Implanted: Qty: 1 on 08/04/2018 by Ac Munoz MD [id number] / / Scr Silvano Ang T8 Shell Right: Humerus Synthes Implanted: Qty: 1 on 08/04/2018 by Ac Munoz MD [id number] / / Scr Silvano Ang T8 Shell Right: Humerus Synthes Implanted: Qty: 1 on 08/04/2018 by Ac Munoz MD Device Identifier Shelf Expiration Date Model / Serial / Lot Explanted Type Area Manufactur er 292.71 / / Wire-K Trcr-1e Pt-5 1.6x150 Ns IMPLANTS Right: Humerus SYNTHES:SY 292.71 - [id number] [employer] [place] Explanted: Qty: 1 on 08/04/2018 by Ac Munoz MD Procedures Comments Procedure Name Priority Date/Time Associated Diagnosis TRANSFUSION SERVICE 08/06/2018 REPORT - SCAN 6:03 PM CDT RHYTHM STRIP - SCAN 08/06/2018 10:40 AM CDT TRANSFUSION SERVICE 08/05/2018 REPORT - SCAN 6:01 PM CDT PREPARE RBC Routine 08/05/2018 4:35 PM CDT POCT-GLUCOSE METER Routine 08/05/2018 11:23 AM CDT ANTIBODY IDENTIFICATION Routine 08/05/2018 9:59 AM CDT POCT-GLUCOSE METER Routine 08/05/2018 6:25 AM CDT CBC W/PLT COUNT & AUTO Routine 08/05/2018 DIFFERENTIAL 4:28 AM CDT PROTHROMBIN TIME/INR Routine 08/05/2018 4:28 AM CDT CBC W/PLT COUNT & AUTO Routine 08/05/2018 DIFFERENTIAL 4:28 AM CDT BASIC METABOLIC PANEL (7) Routine 08/05/2018 4:28 AM CDT POCT-GLUCOSE METER Routine 08/04/2018 11:51 PM CDT POCT-GLUCOSE METER Routine 08/04/2018 6:19 PM CDT FL INSTRUCTIONAL SUPPORT TECHNICIAN IN OR 30 STAT 08/04/2018 MINUTE INCREMENTS 4:40 PM CDT ORIF,HUMERUS-DISTAL 08/04/2018 Open fracture distal 12:00 PM CDT humerus, bicondylar (T-Y fracture), right, initial encounter Special Needs REQ: 1100 OR 1200(REG TABLE, ARM BOARD, C-ARM) POCT-GLUCOSE METER Routine 08/04/2018 11:55 AM CDT ABORH, MANUAL STAT 08/04/2018 11:18 AM CDT TYPE AND SCREEN, Routine 08/04/2018 AUTOMATED 10:[address] UPPER EXTREMITY W/O STAT 08/04/2018 CONTRAST RIGHT 8:[address] BRAIN WITHOUT IV Routine 08/04/2018 CONTRAST 8:58 AM CDT POCT-GLUCOSE METER Routine 08/04/2018 6:24 AM CDT XR ELBOW RIGHT (MIN 3 STAT 08/04/2018 VIEWS) 2:15 AM CDT XR HUMERUS RIGHT 2 VIEW STAT 08/04/2018 2:00 AM CDT CBC W/PLT COUNT & AUTO Routine 08/04/2018 DIFFERENTIAL 1:05 AM CDT PROTHROMBIN TIME/INR Routine 08/04/2018 1:05 AM CDT CBC W/PLT COUNT & AUTO Routine 08/04/2018 DIFFERENTIAL 1:05 AM CDT BASIC METABOLIC PANEL (7) Routine 08/04/2018 1:05 AM CDT POCT-GLUCOSE METER Routine 08/04/2018 12:10 AM CDT after 08/06/2017 Results * TRANSFUSION SERVICE REPORT - SCAN (08/06/2018 6:03 PM CDT) Only the most recent of 2 results within the time period is included. Narrative Performed At * RHYTHM STRIP - SCAN (08/06/2018 10:40 AM CDT) Narrative Performed At * Prepare RBC (08/05/2018 4:35 PM CDT) Unit ABO O Neg [place] UNIT NUMBER [id number] [place] Status WORK IN PROGRESS [facility] [place] Blood Bank Product RED BLOOD CELLS [place] PRODUCT CODE [id number] [facility] Unit ABO O Neg [place] UNIT NUMBER [id number] [facility] [place] Status WORK IN PROGRESS [facility] [place] Blood Bank Product RED BLOOD CELLS [place] PRODUCT CODE [id number] [facility] CROSSMATCH COMPATIBLE [facility] CROSSMATCH COMPATIBLE [facility] Specimen Performing Organization Address City/State/Zipcode Phone Number [facility] [place] * POC-Glucose meter (08/05/2018 11:23 AM CDT) Only the most recent of 7 results within the time period is included. POC-Glucose Meter 131 (H)Comment: TESTED AT 70 - 110 mg/dL [facility] [address] [facility] [id number] Specimen Blood Performing Organization Address [facility] Phone Number [facility] [address] [place] [address] [facility] * Antibody identification (08/05/2018 9:59 AM CDT) ANTIBODY ID ([email or web address]) Anti-S [place] Antibody Consult SIGNED OUTComment: Anti S [place] causes RBC injury, transfuse S negative RBCs.Electronic Signature: Abdias Mercer M.D. Specimen Performing Organization Address [facility] Phone Number [place] [place] * CBC with platelet count + automated diff (08/05/2018 4:28 AM CDT) Only the most recent of 2 results within the time period is included. WBC 10.0 3.5 - 10.5 K/L [facility] RBC 3.08 (L) 3.93 - 5.22 M/L [facility] Hemoglobin 9.9 (L) 11.2 - 15.7 GM/DL [facility] Hematocrit 30.9 (L) 34.1 - 44.9 % [facility] MCV 100.3 (H) 79.4 - 94.8 fL [facility] MCH 32.1 25.6 - 32.2 pg [facility] MCHC 32.0 (L) 32.2 - 35.5 GM/DL [facility] RDW 12.5 11.7 - 14.4 % [facility] Platelets 235 150 - 450 K/CU MM [facility] MPV 9.0 (L) 9.4 - 12.3 fL [facility] nRBC 0 0 - 0 /100 WBC [facility] % Neutros 85 % [facility] % Lymphs 4 % [facility] % Monos 11 % [facility] % Eos 0 % [facility] % Baso 0 % [facility] # Neutros 8.42 (H) 1.56 - 6.13 K/L [facility] # Lymphs 0.42 (L) 1.18 - 3.74 K/L [facility] # Monos 1.04 (H) 0.24 - 0.36 K/L [facility] # Eos 0.00 (L) 0.04 - 0.36 K/L [facility] # Baso 0.01 0.01 - 0.08 K/L [facility] Immature 1 0 - 1 % [facility] Granulocytes-Relative [facility] Specimen Blood Performing Organization Address City/State/Zipcode Phone Number [facility] [address] [place] [address] [facility] * Prothrombin time/INR (08/05/2018 4:28 AM CDT) Only the most recent of 2 results within the time period is included. Protime 14.4 (H) 11.9 - 14.2 seconds [facility] INR 1.2 <=5.9 [facility] Specimen Blood Narrative Performed At Effective 07/17/2018: PT Reference Range Change [facility] New: 11.9-14.2Previous: 11.7-14.7 [facility] RECOMMENDED COUMADIN/WARFARIN INR THERAPY RANGES STANDARD DOSE: 2.0-3.0Includes: PROPHYLAXIS for venous thrombosis, systemic embolization; TREATMENT for venous thrombosis and/or pulmonary embolus. HIGH RISK: Target INR is 2.5-3.5 for patients wiht mechanical heart valves. Performing Organization Address City/[facility] Phone Number [facility] [address] [place] [address] [facility] * Basic Metabolic Panel (08/05/2018 4:28 AM CDT) Only the most recent of 2 results within the time period is included. Sodium 137 136 - 145 meq/L [facility] Potassium 4.6Comment: Specimen slightly 3.5 - 5.1 meq/L [facility] hemolyzed [facility] Chloride 114 (H) 98 - 107 meq/L [facility] CO2 14 (L) 22 - 29 meq/L [facility] BUN 31 (H) 7 - 21 mg/dL [facility] Creatinine 1.62 (H)Comment: Specimen 0.57 - 1.25 mg/dL [facility] slightly hemolyzed [facility] Glucose 137 (H) 70 - 105 mg/dL [facility] Calcium 8.5 8.4 - 10.2 mg/dL [facility] EGFR 32Comment: ESTIMATED GFR IS mL/min/1.73 sq m [facility] NOT ACCURATE CREATININE [facility] CLEARANCE IN PREDICTING GLOMERULAR FILTRATION RATE. ESTIMATED GFR IS NOT APPLICABLE FOR DIALYSIS PATIENTS. Specimen Blood Performing Organization Address City/[facility] Phone Number [facility] [address] [place] [address] [facility] * FL radio machinist in or 30 minute increments (08/04/2018 4:40 PM CDT) Specimen Narrative Performed At FINAL REPORT [facility] Fluoroscopy. History: Intraoperative. Findings:Radiologist was not present for the exam.Fluoroscopy was not performed by the undersigned.Five images from intraoperative fluoroscopy demonstrate humerus ORIF. Fluoroscopy time is 50 seconds. IMPRESSION: Intraoperative exam as described above. Signed: Snehal Huerta MD Report Verified Date/Time:08/04/2018 16:55:52 Reading Location: [facility] C013X Ortho Consult Reading Room Procedure Note Interface, External Ris In - 08/04/2018 4:58 PM CDT FINAL REPORT Fluoroscopy. History: Intraoperative. Findings: Radiologist was not present for the exam. Fluoroscopy was not performed by the undersigned. Five images from intraoperative fluoroscopy demonstrate humerus ORIF. Fluoroscopy time is 50 seconds. IMPRESSION: Intraoperative exam as described above. Signed: Snehal Huerta MD Report Verified Date/Time: 08/04/2018 16:55:52 Reading Location: [facility] C013X Ortho Consult Reading Room Performing Organization Address City/[facility] Phone Number [facility] * ABORH, manual (08/04/2018 11:18 AM CDT) ABO Grouping O [facility] Rh Factor NEG [facility] Specimen Blood Performing Organization Address City/[facility] Phone Number [address] [address] [facility] * Type and screen, automated (08/04/2018 10:51 AM CDT) ABO/RH AUTOMATED (BEAKER) O NEGATIVE [facility] Ab Scrn POSITIVEComment: DONE ON ECHO [facility] Specimen Blood Performing Organization Address [facility] Phone Number [address] [address] [facility] * CT upper extremity without contrast right (08/04/2018 8:58 AM CDT) Specimen Narrative Performed At FINAL REPORT [facility] TECHNIQUE: CT of the right upper extremity WITHOUT intravenous contrast. Dose modulation, iterative reconstruction, and/or weight-based adjustment of the mA/kV was utilized to reduce the radiation dose to as low as reasonably achievable. INDICATION: 63-year-old woman with elbow fracture. COMPARISON: Elbow radiograph from earlier same date. FINDINGS: ABSENCE OF INTRAVENOUS CONTRAST DECREASES SENSITIVITY FOR DETECTION OF FOCAL LESIONS AND VASCULAR PATHOLOGY. BONES: Nondisplaced transverse supracondylar fracture of the distal humerus. No intra-articular extension. No joint dislocation. SOFT TISSUES: Soft tissue edema around the fracture site. Visualized right lung is clear. IMPRESSION: Nondisplaced supracondylar fracture of the right distal humerus. Signed: Stanislav Klein MD Report Verified Date/Time:08/04/2018 09:13:03 Reading Location: [address] Body Reading Room Procedure Note Interface, External Ris In - 08/04/2018 9:15 AM CDT FINAL REPORT TECHNIQUE: CT of the right upper extremity WITHOUT intravenous contrast. Dose modulation, iterative reconstruction, and/or weight-based adjustment of the mA/kV was utilized to reduce the radiation dose to as low as reasonably achievable. INDICATION: 63-year-old woman with elbow fracture. COMPARISON: Elbow radiograph from earlier same date. FINDINGS: ABSENCE OF INTRAVENOUS CONTRAST DECREASES SENSITIVITY FOR DETECTION OF FOCAL LESIONS AND VASCULAR PATHOLOGY. BONES: Nondisplaced transverse supracondylar fracture of the distal humerus. No intra-articular extension. No joint dislocation. SOFT TISSUES: Soft tissue edema around the fracture site. Visualized right lung is clear. IMPRESSION: Nondisplaced supracondylar fracture of the right distal humerus. Signed: Stanislav Klein MD Report Verified Date/Time: 08/04/2018 09:13:03 Reading Location: [facility] C013Y CT Body Reading Room Performing Organization Address City/State/Zipcode Phone Number [facility] * CT brain without IV contrast (08/04/2018 8:58 AM CDT) Specimen Narrative Performed At FINAL REPORT [facility] CT, BRAIN, WITHOUT CONTRAST CLINICAL INDICATION:subdural hemorrhage COMPARISON: None TECHNIQUE:Noncontrast axial CT imaging of the brain and skull. DOSE REDUCTION: Dose modulation, iterative reconstruction, and/or weight-based adjustment of the mA/kV was utilized to reduce the radiation dose to as low as reasonably achievable. FINDINGS: The examination is limited by streak artifact arising from right cochlear implant. Trace volume subarachnoid blood projects over the superior right frontal sulcus without underlying mass effect. There is trace subdural hematoma subjacent to the squamous portion of the temporal bone, incompletely viewed secondary to aforementioned artifact. Remaining portions the brain parenchyma reveal no infarct or recent hemorrhage. There is no midline shift or hydrocephalus. The calvarium is intact. Included paranasal sinuses are clear. Superficial scalp hematoma overlies the superior/lateral right supraorbital rim. IMPRESSION: Limited by streak artifact arising from right cochlear implant. Small right subdural hematoma without underlying mass effect. Trace associated subarachnoid blood in the right superior frontal sulcus. Signed: JR Miller Robert MD Report Verified Date/Time:08/04/2018 09:30:09 Reading Location: [address] Neuro Reading Room Procedure Note Interface, External Ris In - 08/04/2018 9:32 AM CDT FINAL REPORT CT, BRAIN, WITHOUT CONTRAST CLINICAL INDICATION: subdural hemorrhage COMPARISON: None TECHNIQUE: Noncontrast axial CT imaging of the brain and skull. DOSE REDUCTION: Dose modulation, iterative reconstruction, and/or weight-based adjustment of the mA/kV was utilized to reduce the radiation dose to as low as reasonably achievable. FINDINGS: The examination is limited by streak artifact arising from right cochlear implant. Trace volume subarachnoid blood projects over the superior right frontal sulcus without underlying mass effect. There is trace subdural hematoma subjacent to the squamous portion of the temporal bone, incompletely viewed secondary to aforementioned artifact. Remaining portions the brain parenchyma reveal no infarct or recent hemorrhage. There is no midline shift or hydrocephalus. The calvarium is intact. Included paranasal sinuses are clear. Superficial scalp hematoma overlies the superior/lateral right supraorbital rim. IMPRESSION: Limited by streak artifact arising from right cochlear implant. Small right subdural hematoma without underlying mass effect. Trace associated subarachnoid blood in the right superior frontal sulcus. Signed: JR Miller Robert MD Report Verified Date/Time: 08/04/2018 09:30:09 Reading Location: [address] Neuro Reading Room Performing Organization Address City/State/Zipcode Phone Number [facility] * XR elbow 3 views min right (08/04/2018 2:15 AM CDT) Specimen Narrative Performed At FINAL REPORT [facility] Examination: Right elbow series, 3 views Clinical Indication: Distal arm pain, fracture Impression: Examination is limited by superimposed cast and bandage material and suboptimal patient positioning. There is an acute horizontally oriented minimally displaced supracondylar distal humeral fracture. There is displacement of the anterior and posterior fat pads compatible with an associated elbow effusion/hemarthrosis. 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 Evaluation of the radial head is limited by the osteoarthritic changes and suboptimal patient positioning. Bones demonstrate demineralization compatible with a component of senescent osteopenia. However, more aggressive infiltrative process cannot be excluded. Fullness of the soft tissues may reflect patient's body habitus, nonspecific swelling and/or contusion. Signed: Meagan Briscoe MD Report Verified Date/Time:08/04/2018 02:48:04 Reading Location: [address] Reading Room Procedure Note Interface, External Ris In - 08/04/2018 2:50 AM CDT FINAL REPORT Examination: Right elbow series, 3 views Clinical Indication: Distal arm pain, fracture Impression: Examination is limited by superimposed cast and bandage material and suboptimal patient positioning. There is an acute horizontally oriented minimally displaced supracondylar distal humeral fracture. There is displacement of the anterior and posterior fat pads compatible with an associated elbow effusion/hemarthrosis. 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 Evaluation of the radial head is limited by the osteoarthritic changes and suboptimal patient positioning. Bones demonstrate demineralization compatible with a component of senescent osteopenia. However, more aggressive infiltrative process cannot be excluded. Fullness of the soft tissues may reflect patient's body habitus, nonspecific swelling and/or contusion. Signed: Meagan Briscoe MD Report Verified Date/Time: 08/04/2018 02:48:04 Reading Location: [address] Reading Room Performing Organization Address City/State/Zipcode Phone Number [facility] * XR humerus 2 views right (08/04/2018 2:00 AM CDT) Specimen Narrative Performed At FINAL REPORT [facility] Examination: Right humerus series, 2 views Clinical Indication: Distal arm pain, fracture Impression: Examination is limited by superimposed cast material and suboptimal patient positioning. Bones demonstrate demineralization compatible with a component of senescent osteopenia. However, more aggressive infiltrative process cannot be excluded. There is an acute minimally displaced horizontal supracondylar fracture of the distal right humerus. 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 Evaluation of the radial head is limited on today study. Fullness of the soft tissues may reflect patient's body habitus, nonspecific swelling and/or contusion. Signed: Meaagn Briscoe MD Report Verified Date/Time:08/04/2018 02:44:48 Reading Location: [address] Reading Room Procedure Note Interface, External Ris In - 08/04/2018 2:47 AM CDT FINAL REPORT Examination: Right humerus series, 2 views Clinical Indication: Distal arm pain, fracture Impression: Examination is limited by superimposed cast material and suboptimal patient positioning. Bones demonstrate demineralization compatible with a component of senescent osteopenia. However, more aggressive infiltrative process cannot be excluded. There is an acute minimally displaced horizontal supracondylar fracture of the distal right humerus. 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 Evaluation of the radial head is limited on today study. Fullness of the soft tissues may reflect patient's body habitus, nonspecific swelling and/or contusion. Signed: Meagan Briscoe MD Report Verified Date/Time: 08/04/2018 02:44:48 Reading Location: [address] Reading Room Performing Organization Address City/State/Zipcode Phone Number [facility] after 08/06/2017 Insurance Payer Benefit Subscriber ID Type Phone Address Plan / Group [employer] - MEDICARE MGD CARE [employer] xxxxxxxx [phone] [address] [place] [address] HMO POS PPO Advance Directives For more information, please contact: [facility] [address] [place] [address] Date Inactivated Comments Code Status Date Activated 08/05/2018 6:35 PM Full Code 08/03/2018 10:48 PM This code status was determined by: Patient
--- NOTE | 2018-08-07 23:35 | NUR ---
c-collar applied per md request on arrival.
--- NOTE | 2018-08-08 01:27 | Diagnostic Imaging Report ---
CT BRAIN WO HISTORY: Fall COMPARISON: Head CT 08/03/2018 Technique: Noncontrast axial scans were obtained from skull base to the vertex. Coronal and sagittal reconstructions obtained from the axial data. One or more of the following dose reduction techniques were used: Automated exposure control, adjustment of the mA and/or kV according to patient size, and/or utilization of iterative reconstruction technique. DISCUSSION: Streak artifacts obscure some details, mainly adjacent to the cochlear implant. Beam hardening artifact at the level of the skull base also obscures some details. Scalp/Skull: Right frontal scalp hematoma is present. No associated calvarial fracture is seen. Right-sided cochlear implant is in place. Bilateral wall down mastoidectomy changes are present. Opacification of the right mastoidectomy defect and thin reticular densities within the left mastoidectomy defect are nonspecific. Brain sulci: Mildly prominent. Ventricles: Compensatory dilatation. Extra-axial spaces: Trace subarachnoid hemorrhage along the right frontal convexity has decreased. Approximately 6 mm thick right frontotemporal acute subdural hematoma has increased in size; there is mild local mass affect. New mild right left midline shift measures up to 5 mm. No additional masses or fluid collections. Carotid siphon calcifications are present. Parenchyma: No definite parenchymal hemorrhage is seen; however, visualization of the right anterior temporal pole is limited. Mild bilateral deep white matter hypodensity is likely chronic microvascular ischemic change. Small round hypodense lesion in the posterior right redding radiata may be a prominent perivascular space or old lacunar infarct. Otherwise, no masses, or large vascular territory acute infarct. Dural sinuses: No abnormal densities. Sellar/Suprasellar region: Intact. Skull base: Intact. Incidental findings: Mild left maxillary sinus mucosal thickening is partially visualized. Thin calcification along the posterior right ocular globe is present. IMPRESSION: Limited exam due to streak and beam hardening artifacts. Visualization of the right temporal pole is limited. In spite of limitations: 1. Approximately 6 mm thick right frontotemporal acute subdural hematoma has increased in size. Associated 5 mm of right to left midline shift. 2. Trace subarachnoid hemorrhage along the right frontal convexity has decreased. 3. No other definite acute intracranial abnormalities. No other significant brain herniation. Above findings were discussed with Dr. Christiansen at 1:23 AM on 08/08/2018 (by Dr. Zavala). Persistent findings: 1. Mild supratentorial chronic microvascular ischemic change. Mild generalized cerebral volume loss. 2. Small round hypodense lesion in the posterior right redding radiata may be a prominent perivascular space or old lacunar infarct. 3. Right-sided cochlear implant in place. Bilateral mastoidectomy changes as described above. Signed by: Dr. Gustabo Zavala M.D. on 08/08/2018 1:24 AM
--- NOTE | 2018-08-08 01:31 | Diagnostic Imaging Report ---
CT CERVICAL SPINE WO HISTORY: Trauma/fall COMPARISON: Concurrent head CT; cervical spine CT 08/03/2018; chest CT 07/23/2018 TECHNIQUE: CT of the cervical spine without contrast. Sagittal and coronal reformations were created. One or more of the following dose reduction techniques were used: Automated exposure control, adjustment of the mA and/or kV according to patient size, and/or utilization of iterative reconstruction technique. FINDINGS: Bone demineralization limits evaluation. Cervical lordosis is slightly straightened. There is no scoliosis or subluxation. No definite acute fracture or compression deformity is seen. Small corticated osseous fragment at the odontoid tip may be an os odontoideum or old odontoid fracture fragment. Associated mild atlantoaxial arthrosis is present. The craniocervical junction is otherwise intact. No gross spinal canal masses are seen. The paravertebral and paraspinal soft tissues are unremarkable. Mild multilevel spondylosis is most prominent at C5-C6. Mild scarring in the lung apices. Mild right and moderate left carotid bulb calcified plaque is present. IMPRESSION: No acute osseous abnormalities. Mild multilevel spondylosis, most prominent at C5-C6. Signed by: Dr. Gustabo Zavala M.D. on 08/08/2018 1:28 AM
--- NOTE | 2018-08-08 01:48 | Diagnostic Imaging Report ---
EXAMINATION: CHEST SINGLE (PORTABLE) INDICATION: ^FALL ^[id number] ^[id number] COMPARISON: 08/03/2018 FINDINGS: AP view TUBES and LINES: None. LUNGS and pleura: Limited by rotation and body habitus. Lungs are well inflated. Left basilar opacification, obscuring the left costophrenic angle. No visible pneumothorax. Biapical scarring. HEART AND MEDIASTINUM: The cardiomediastinal silhouette is unremarkable. BONES AND SOFT TISSUES: No acute osseous lesion. Soft tissues are unremarkable. UPPER ABDOMEN: No free air under the diaphragm. IMPRESSION: Obscuration of the left costophrenic angle, could be due to scarring or represent small effusion/atelectasis versus contusion in the setting of trauma. Signed by: Dr. Jose Cox MD on 08/08/2018 1:44 AM
--- NOTE | 2018-08-08 02:20 | NUR ---
c-collar removed per md orders.
[2018-08-08 02:23] VITALS: BP 109/91
== END 2018-08-08 02:28 | disposition other institution (70) ==
LOC: ER 23:27
DX: S06.5X0A Traumatic subdural hemorrhage without loss of consciousness, initial encounter (principal); W01.0XXA Fall on same level from slipping, tripping and stumbling without subsequent striking against object, initial encounter; Y92.008 Other place in unspecified non-institutional (private) residence as the place of occurrence of the external cause; I10 Essential (primary) hypertension; I50.9 Heart failure, unspecified; F41.9 Anxiety disorder, unspecified; K21.9 Gastro-esophageal reflux disease without esophagitis; Z91.81 History of falling
CPT/HCPCS: 70450; 71045; 72125; 99284

== ENCOUNTER → 2018-09-09 | Outpatient (CLI) | payer MEDICARE ==
--- NOTE | 2018-09-09 14:16 | Diagnostic Imaging Report ---
History:Follow-up right subdural hematoma Comparison studies:CT head 08/03/2018 and 08/08/2018 Technique: Axial images were obtained from the skull base to the vertex. Coronal and sagittal images reconstructed from the axial data. Intravenous contrast: None Dose modulation, iterative reconstruction, and/or weight based adjustment of the mA/kV was utilized to reduce the radiation dose to as low as reasonably achievable. Findings: Scalp/skull: No abnormalities. Extra-axial spaces: Right frontal hypodense fluid collection with flattening of the adjacent sulci measuring approximately 1.7 cm in maximum transverse dimension (previously 0.6 cm). Stable 0.5 cm left midline shift. Brain sulci: Mildly prominent. Ventricles: Mild compensatory dilatation. No hydrocephalus. Parenchyma: Few hypodensities in the supratentorial white matter are small vessel ischemic changes. No masses, acute hemorrhage, acute or chronic cortical vascular insults. Sellar/suprasellar region: No abnormalities. Craniocervical junction: Patent foramen magnum. No Chiari one malformation. Incidental findings: Atherosclerotic calcifications in the carotid siphons and vertebral lateral . Opacified right mastoid air cells and middle ear with mastoidectomy changes and a perihepatic implant in place, stable. Left mastoidectomy changes, stable. Impression: Left frontal chronic subdural hematoma with mass effect over the adjacent parenchyma increased from previous examination. Stable 0.5 cm left midline shift. No other changes compared to the previous exam. Signed by: DR Jaret Mojica M.D. on 09/09/2018 2:13 PM
== END ==
LOC: CT 13:07
PROVIDERS: ATTEND Family Medicine
DX: S06.5X0D Traumatic subdural hemorrhage without loss of consciousness, subsequent encounter (principal)
CPT/HCPCS: 70450

== ENCOUNTER 2018-10-17 11:00 | Outpatient (RCR) | payer MEDICARE | END 2018-10-19 | LOC: OT 11:00 | PROVIDERS: ATTEND Specialist | DX: S42.42 Comminuted supracondylar fracture without intercondylar fracture of humerus (principal); M25.521 Pain in right elbow; M25.621 Stiffness of right elbow, not elsewhere classified; R53.1 Weakness ==

== ENCOUNTER 2019-03-31 05:29 | Observation (INO) | payer MEDICARE ==
[~2019-03-31] VITALS: Ht 152.4 cm; Wt 67.1 kg
[~2019-03-31 05:29] MED LIST changes: +ACIPHEX20 MG PO; +LISINOPRIL2.5 MG PO; +PLAVIX75 MG PO
[2019-03-31] MEDS ORDERED: DEXAMETHASONE SOD PHOS 10 MG/1 ML VIAL ONE (06:25)
[2019-03-31] MEDS ORDERED: CELECOXIB 200 MG CAP ONE (06:25)
[2019-03-31] MEDS ORDERED: GABAPENTIN 300 MG CAP ONE (06:25)
[2019-03-31] MEDS ORDERED: VANCOMYCIN HCL 1,000 MG ONE (06:54)
[2019-03-31] MEDS ORDERED: SODIUM CHLORIDE 0.9% 500ML 500 ML ONE (06:54)
[2019-03-31] MEDS ORDERED: BACITRACIN 50,000 UNIT VIAL ONE (06:55)
[2019-03-31] MEDS ORDERED: HYDROGEN PEROXIDE 120 ML BTL ONE (06:55)
[2019-03-31] MEDS ORDERED: TRANEXAMIC ACID 1,000 MG/10 ML ML ONE (06:55)
[2019-03-31] MEDS ORDERED: VANCOMYCIN 1GM/NS 250 ML 250 ML ONE (07:01)
[2019-03-31] MEDS ORDERED: BUPIVACAINE 7.5MG/ML /DEXTROSE 82.5MG/ML 2 ML AMP INJ ONE (07:10)
[2019-03-31] MEDS ORDERED: ONDANSETRON HCL INJ 2MG/ML 2ML 2 MG/ML VIAL ONE (07:15)
[2019-03-31] MEDS ORDERED: ROPIVACAINE 246.25 MG, EPINEPHRINE HCL 1:1000 1ML 0.5 MG, CLONIDINE HCL 0.08 MG, KETORO... INJ ONE ×5 (08:00)
[2019-03-31] MEDS: SODIUM CHLORIDE 0.9% 1000ML 1,000 ML IV SCH ×2 (09:58→19:58)
[2019-03-31] MEDS ORDERED: DIPHENHYDRAMINE HCL INJ 50 MG/ML VIAL IM/IV PRN (10:00)
[2019-03-31] MEDS ORDERED: KETOROLAC TROMETHAMINE 30 MG/ML VIAL IV PRN (10:00)
[2019-03-31] MEDS ORDERED: PROMETHAZINE HCL (IM) 25 MG/ML VIAL INJ PRN (10:00)
[2019-03-31] MEDS ORDERED: ZOLPIDEM TARTRATE 5 MG TAB PO PRN (10:00)
[2019-03-31] MEDS ORDERED: HYDROCODONE/APAP 5MG-325MG TAB PO PRN (10:00)
[2019-03-31] MEDS ORDERED: HYDROCODONE/APAP 7.5MG-325MG 1 EA TAB PO PRN (10:00)
[2019-03-31] MEDS ORDERED: ACETAMINOPHEN 650 MG SUPP PR PRN (10:00)
[2019-03-31] MEDS ORDERED: DOCUSATE SODIUM 100 MG CAP PO PRN (10:00)
[2019-03-31] MEDS: ACETAMINOPHEN 1000 MG/100 ML IV SCH ×2 (12:00→17:51)
--- NOTE | 2019-03-31 12:13 | Diagnostic Imaging Report ---
Exam: Pelvis 1 view Clinical history: Postop Findings: The patient is status post bilateral total hip arthroplasty. The joint prosthesis appear in their expected position for the AP view. There is no evidence of acute fracture or malalignment. The soft tissue is unremarkable. Impression: 1. Status post bilateral total hip arthroplasty with postoperative changes. Signed by: Dr. Romeo Elkins MD on 03/31/2019 12:10 PM
--- NOTE | 2019-03-31 12:33 | Operative Report ---
DATE OF PROCEDURE: 03/31/2019 SURGEON: Gurinder Dudley MD INSULATION CUPOLA OPERATOR: Aníbal Slaughter, certified PA. PREOPERATIVE DIAGNOSIS: Osteoarthritis, left hip. POSTOPERATIVE DIAGNOSIS: Osteoarthritis, left hip. PROCEDURE: Left total hip arthroplasty. INDICATIONS: The patient is a frail 63-year-old lady, who has end-stage arthritis of her left hip. She has failed conservative management and would like to proceed with a left total hip replacement. I have reviewed the risks and benefits of the procedure. She has been through a right hip replacement. She states she understands and wishes to proceed. PROCEDURE IN DETAIL: The patient was brought to the operating room and given a spinal anesthetic. She received prophylactic antibiotics and tranexamic acid in the holding area. She was positioned in the right lateral decubitus position. Her left hip was prepped and draped in a sterile manner. A preoperative time-out was performed. The hip was noted to be very stiff during prepping. A posterior approach was made to the left hip. Her skin was very thin and frail. Abundant subcutaneous adipose tissue was encountered. Hemostasis was obtained with electrocautery. The muscle was more pale than usual. A Charnley self-retaining retractor was placed. Care was taken to avoid injury to the sciatic nerve. The posterior capsule was exposed and released. Further hemostasis was obtained with electrocautery. The hip was dislocated and an oscillating saw was used to resect the femoral head. Complete loss of articular cartilage and stenosing osteophytes were noted around the hip. Acetabular retractors were carefully placed. The true floor of the acetabulum was established with a 46 mm reamer. The socket was then sequentially reamed up to 56 mm. This also opened aperture of the hip socket. A [place] 56 mm outer diameter socket was then impacted into place. Good fixation was felt to be obtained. The hip had been thoroughly irrigated on several occasions with a shower tip pulsatile lavage. Hemispherical bleeding cancellous bone was encountered. Fixation was augmented with a single 20 mm screw placed into the ilium. A curved osteotome was used to remove the anterior and inferior osteophytes. A highly cross-linked polyethylene liner with a 36 mm inner diameter was then seated. Care was taken to avoid any interposition of soft tissue. The proximal femur was then exposed. The Trident socket was then packed with a moistly soaked lap sponge. The bone quality in the femur was very osteoporotic. A [place] cemented hip system was used. The broaches had very little interdigitation to the canal and endosteal bone. As with the other side, I elected to use a 44 mm offset #2 stem. Trial reduction was performed. Some guesstimation was necessary because the stem was not stable in the femoral canal. The trial implants were removed. A medium bone plug was placed. The canal was thoroughly irrigated with a shower tip pulsatile lavage and then packed with moistly soaked peroxide sponges under suction. Two mixes of Simplex cement preloaded with antibiotics were prepared on the back table. This was inserted in a retrograde fashion and pressurized until about 8 minutes of cement time. An [place] 44 mm offset #2 stem with a distal centralizer was then seated to the predetermined level in approximately 15 degrees of anteversion. The stem was held under pressure until the cement completely cured. A standard 36 mm head was felt to provide appropriate soft tissue balancing, oriental orthodox of limb length, and stability. The trial implant was removed and a stainless femoral head was seated onto a clean and dry stem. A final reduction was performed. The hip was again put through a full arc of motion and noted to have excellent stability. The posterior capsule was well preserved and was easily repaired with interrupted #2 Ethibond. The piriformis was far too contracted to try to repair. A 500 mg of vancomycin powder was sprinkled into the deep portion of the wound. A 100 mL premixed pericapsular JENA injection was placed into the surrounding soft tissue. The deep fascia was closed with interrupted #2 Ethibond. The skin was closed with subcuticular Vicryl and justine. As previously noted, the skin was very thin. A sterile Aquacel bandage was applied. The patient was returned to the supine position and transported to the recovery room in stable condition. Estimated blood loss was 75 mL. At the end of the procedure, all needle and sponge counts were correct. Gurinder Dudley MD DR/JOSE /[id number]
[2019-03-31] MEDS ORDERED: PROMETHAZINE 12.5MG/ NACL 0.9% 50 ML IV PRN (15:00)
[2019-03-31 16:22] VITALS: BP 112/74
--- NOTE | 2019-03-31 17:09 | NUR ---
DR BROOKS OFFICE PREARRANGED FOLLOWING DISCHARGE PLAN OF:HOME TO [address] HOME HEALTH WITH HOME CARE PROVIDERS CONFIRMED WITH [facility] IN PERSON D[employer] 3 IN ONE COMMODE. AND ROLLING WALKER WITH WHEELS. PROVIDED BY [employer] [phone] SAMANTHA DHILLON SIGNED AND ON CHART COPY LEFT WITH PATIENT GAVE CARD FOR QUESTIONS AND OR CONCERNS.
--- NOTE | 2019-03-31 17:11 | NUR ---
NOTIFIED BILLING THAT [address] IS [address] AND TO ADD FRIEND TO CONTACT LIST KATE ULRICH [phone]
[2019-03-31] MEDS: ONDANSETRON HCL INJ 2MG/ML 2ML 2 MG/ML VIAL IV PRN ×2 (17:16→17:45)
[2019-03-31 17:24] VITALS: BP 114/57
[2019-03-31] MEDS: ASPIRIN 325 MG TAB PO SCH (17:50)
[2019-03-31] MEDS: CELECOXIB 100 MG CAP PO SCH (17:50)
[2019-03-31] MEDS ORDERED: PROPOFOL IV EMULSION 10 MG/ML 20 ML VIAL ONE (18:28)
[2019-03-31] MEDS ORDERED: PHENYLEPHRINE HCL 1% 10 MG/ML VIAL ONE (18:28)
[2019-03-31] MEDS ORDERED: LIDOCAINE HCL 2% LOCAL INJ 5 ML SDV VIAL INJ ONE (18:28)
[2019-03-31] MEDS ORDERED: FENTANYL CITRATE/PF 100MCG/2 ML INJ ONE (18:50)
[2019-03-31] MEDS ORDERED: MIDAZOLAM HCL 2 MG/2 ML VIAL ONE (18:50)
[2019-03-31] MEDS ORDERED: VANCOMYCIN 1GM/NS 250 ML 250 ML IV SCH (19:00)
[2019-03-31 23:02] VITALS: BP 107/53
[2019-03-31 23:05] VITALS: BP 107/53
[2019-04-01] VITALS: BP 104/55
--- NOTE | 2019-04-01 00:20 | NUR ---
AAOX43.NO RESP.DISTRESS.ABDUCTION PILLOW IN PLACE.IV FLUID RUNNING.FOOT PUMP IN PLACE.USES ICS.BED LOCKED AND IN LOWEST POSITION.PHONE AND CALL LIGHT WITHIN REACH.INSTRUCTED TO CALL FOR ASSISTANCE NEEDED.
[2019-04-01] MEDS: ACETAMINOPHEN 1000 MG/100 ML IV SCH ×2 (00:49→05:32)
[2019-04-01 04:00] VITALS: BP 109/48
[2019-04-01] MEDS: SODIUM CHLORIDE 0.9% 1000ML 1,000 ML IV SCH (05:58)
[2019-04-01 06:26] LABS: HEMATOCRIT 30.7 % (34.2-44.1); HEMOGLOBIN 9.8 g/dL (12.0-16.0)
[2019-04-01 06:46] VITALS: BP 109/48
--- NOTE | 2019-04-01 07:00 | NUR ---
BED SIDE SHIFT REPORT GIVEN TO ONCOMING RN.STABLE CONDITION.
--- NOTE | 2019-04-01 07:10 | NUR ---
RECEIVED REPORT FROM JOEL CORTEZ. PATIENT AWAKE AT THIS TIME, DENIES PAIN. NO VISIBLE SIGNS OF DISTRESS NOTED. COCHLEAR IMPLANT TO RIGHT EAR IN PLACE. CALL LIGHT WITHIN REACH.
[2019-04-01 08:05] VITALS: BP 96/59
[2019-04-01 08:37] VITALS: BP 96/59
[2019-04-01] MEDS ORDERED: ACETAMINOPHEN 1000 MG/100 ML IV PRN (10:00)
[2019-04-01] MEDS: CELECOXIB 100 MG CAP PO SCH (10:11)
[2019-04-01] MEDS: ASPIRIN 325 MG TAB PO SCH (10:11)
[2019-04-01] MEDS ORDERED: ONDANSETRON HCL 4 MG ORAL DISINTEGRATING TAB PO PRN (10:45)
[2019-04-01 11:52] VITALS: BP 117/71
--- NOTE | 2019-04-01 13:18 | Consultation ---
DATE OF CONSULTATION: 04/01/2019 SUBJECTIVE: This is a 63-year-old female who came in status post bilateral total hip arthroplasty. The patient is currently in postop rehabilitating. No chest pain. No shortness of breath. PAST MEDICAL HISTORY: 1. Hypertension. 2. Hyperlipidemia. 3. Diabetes mellitus. PAST SURGICAL HISTORY: 1. The patient has a history of cholesteatoma repair. 2. Bilateral mastectomy. 3. Cholecystectomy. 4. Left knee surgery. 5. The patient also had tonsillectomy. SOCIAL HISTORY: No EtOH, no IV drug abuse. Lives with . The patient is hard of hearing. Has cochlear implant too. REVIEW OF SYSTEMS: Negative for chest pain. No shortness of breath. No nausea, vomiting, or diarrhea. Pain in the hip is controlled. OBJECTIVE: VITAL SIGNS: Temperature is 96.7, pulse of 69, respirations of 20, blood pressure is 109/48, and pulse oximeter of 96%. HEENT: Normocephalic and atraumatic. The patient has cochlear implant. CVS: S1 and S2 normal. Regular rhythm. ABDOMEN: Nontender and nondistended. EXTREMITIES: No clubbing, no cyanosis, no edema. Left hip with surgical wound clean and dry. No dehiscence noted. LABORATORY DATA: Today hemoglobin is 9.8 and hematocrit 30.7. ASSESSMENT: Ms. Livia Esposito with: 1. Diabetes mellitus. 2. Hypertension. 3. Hyperlipidemia. 4. History of left hip arthroplasty, postoperative day 1. PLAN: Continue current medications. The patient is currently on vancomycin q.12 hours. She is also on Celebrex 200 mg daily, acetaminophen for pain control and hydrocodone. The patient's blood pressure has been trending well. We will continue monitoring her blood pressures. If needed, fluid resuscitation and blood transfusion will be done. Hemoglobin is stable. Further recommendation per clinical course. We will continue with standard postoperative care, DVT prophylaxis, and also physical therapy as per Orthopedics. Further recommendation per clinical course. Discharge planning as per Dr. Dudley. MD KATHARINA Reyes/PAULL /[id number]
--- NOTE | 2019-04-01 13:24 | NUR ---
RECIEVED DISCHARGE ORDERS. PRESCRIPTION CALLED TO [facility]. DISCHARGE INSTRUCTIONS AND EDUCATION PROVIDED TO PATIENT, SPOUSE, AND CAREGIVER. ALL VERBALIZED UNDERSTANDING. IV DISCONTINUED WITH DISTAL TIP INTACT. DRESSING APPLIED WITH NO BLEEDING NOTED. ALL BELONGINGS RETURNED TO PATIENT/FAMILY. TRANSPORTED TO VEHICLE WITH WHEELCHAIR. VITAL SIGNS/PATIENT STABLE. DISCHARGED WITHOUT INCIDENT.
[2019-04-01] MEDS ORDERED: CELECOXIB 200 MG CAP PO SCH (17:00)
== END 2019-04-01 13:24 | disposition home health service (06) ==
LOC: OR 05:29 → PACU V 10:00 → MED/SURG 14:41
PROVIDERS: ADMIT Specialist; ATTEND Specialist
DX: M16.0 Bilateral primary osteoarthritis of hip (principal); M17.0 Bilateral primary osteoarthritis of knee; E11.9 Type 2 diabetes mellitus without complications; I10 Essential (primary) hypertension; Z96.652 Presence of left artificial knee joint; Z96.641 Presence of right artificial hip joint
CPT/HCPCS: 27130; 36415 ×2; 72170; 82948; 85014; 85018; 86850 ×2; 86870 ×2; 86880 ×2; 86900 ×2; 86905 ×2; 86920; 86922; 97110; 97116 ×2; 97161; 97530; 99001 ×2; C1713; G0378 ×2; J0131 ×2; J0171; J1100; J1885; J2001; J2250; J2370; J2405; J2704; J2795; J3010; J3370 ×2; J7030; J7040

== ENCOUNTER 2019-05-13 13:32 | Inpatient (IN) | payer MEDICARE ==
[~2019-05-13] VITALS: Ht 152.4 cm; Wt 67.1 kg
[~2019-05-13 13:32] MED LIST changes: +ZOFRAN4 MG SL
[2019-05-13] MEDS: SODIUM CHLORIDE 0.9% 1000ML 1,000 ML IV SCH (13:56)
[2019-05-13 15:23] LABS: BASOPHILS # (AUTO) 0.1 (0.0-0.1); BASOPHILS % 0.3 % (0.0-1.0); EOSINOPHILS % 0.1 % (0.0-6.0); HEMATOCRIT 38.7 % (34.2-44.1); HEMOGLOBIN 13.1 g/dL (12.0-16.0); LYMPHOCYTES # (AUTO) 1.4 (1.0-3.2); MEAN CORPUSCULAR HEMOGLOBIN 28.5 pg (28-32); MEAN CORPUSCULAR HGB CONC 33.9 g/dL (31-35); MEAN CORPUSCULAR VOLUME 84.3 fL (81-99); MONOCYTES # (AUTO) 2.4 (0.2-0.8); MONOCYTES % 10.7 % (4.4-11.3); NEUTROPHILS # (AUTO) 18.5 (2.1-6.9); NEUTROPHILS % 81.5 % (38.7-80.0); PLATELET COUNT 505 x10e3/uL (140-360); RED BLOOD COUNT 4.59 x10e6/uL (3.6-5.1); RED CELL DISTRIBUTION WIDTH 15.2 % (11.7-14.4)
[2019-05-13 15:34] LABS: ANION GAP 16.3 mmol/L (8-16); CALCIUM 7.7 mg/dL (8.4-10.2); CREATININE, SERUM 2.67 mg/dL (0.57-1.11)
[2019-05-13 15:40] LABS: POTASSIUM 2.3 mmol/L (3.5-5.1)
[2019-05-13] MEDS ORDERED: POTASSIUM CHLORIDE 10MEQ/100ML 100 ML IV ONE (15:45)
[2019-05-13] MEDS ORDERED: ONDANSETRON HCL INJ 2MG/ML 2ML 2 MG/ML VIAL IV STA (15:56)
[2019-05-13] MEDS ORDERED: MORPHINE SULFATE INJ 4 MG/ML INJ 1ML IV STA (15:56)
[2019-05-13] MEDS ORDERED: LEVOFLOXACIN 750MG/D5W 150ML 150 ML IV SCH (16:30)
[2019-05-13] MEDS: POTASSIUM CHLORIDE 10MEQ EA PO SCH (16:31)
[2019-05-13] MEDS ORDERED: MORPHINE SULFATE INJ 4 MG/ML INJ 1ML IV PRN (18:00)
[2019-05-13] MEDS: METRONIDAZOLE 500MG/NS 100ML 100 ML IV SCH (18:18)
--- NOTE | 2019-05-13 18:40 | History and Physical ---
HISTORY OF PRESENT ILLNESS: The patient is a 63-year-old lady, who came in to admission with a prior admission of gastroenteritis like symptoms about 3 days prior to this admission. The patient was seen in the ER. CT scan was done, was very negative. The patient was sent home with [place]. The patient reported to my clinic yesterday and the patient had symptomatic abdominal pain. White count and BMP were done. The white count is slightly elevated and BNP also showed the patient with acute renal failure and also hypokalemia. The patient sent to the ER was found to have elevated lactic acid and also elevated white count of 22,000, the patient was admitted, currently on antibiotic. PAST MEDICAL HISTORY: History of hypertension, history of hyperlipidemia, history of reflux esophagitis, and history of hearing loss. PAST SURGICAL HISTORY: History of bilateral mastectomy for breast cancer, history of lap cholecystectomy, history of left knee surgery, history of hip replacement recently and has history of tonsillectomy. The patient also had a mastoidectomy for her mastoids and also cochlear implant. FAMILY HISTORY: Positive for hypertension and diabetes in mother and father. SOCIAL HISTORY: No EtOH. No IV drug abuse. The patient lives at home with and as a primary shared services manager of the . The patient has no EtOH. No IV drug abuse and no history of smoking either. REVIEW OF SYSTEMS: Negative for chest pain. Positive for some shortness of breath on exertion. The patient also has abdominal pain. Positive for diarrhea. Positive nausea. No vomiting. No constipation. No rectal bleeding. No hematochezia. No hematemesis. PHYSICAL EXAMINATION: VITAL SIGNS: Temperature 98.4, pulse of 76, respirations of 20, blood pressure is 94/70, and pulse oximetry of 100%. HEENT: Normocephalic, atraumatic. The patient is very hard of hearing. CVS: S1 and S2. Slightly tachy. LUNGS: Clear to auscultation bilaterally. ABDOMEN: Tender in the left lower quadrant. EXTREMITIES: No clubbing, no cyanosis, no edema. MUSCULOSKELETAL SYSTEM: Multiple and synovial joint inflammation and tenderness and decreased pulses in the lower extremities. LABORATORY VALUES: White count is showing 2,000, neutrophil count of 81.5, and platelet count is 505. Chemistry shows sodium of 134, potassium 2.3, BUN of 25, creatinine of 2.67, baseline is about 1.8. Lactic acid is 1.2, calcium is 7.7. MICROBIOLOGY: Blood cultures are pending. DIAGNOSTIC STUDIES: CT scan last abdominal CT showed fluid attenuation in the colon without abnormal dilatation and otherwise no acute abnormalities. ASSESSMENT: Ms. Livia Esposito with: 1. Leukocytosis. 2. Abdominal pain with tenderness, presumptive diagnosis of colitis. PLAN: 1. Plan is to start the patient on renal dose of Levaquin and Flagyl, which has been started in the ER. 2. Hydration. 3. Hypokalemia. Replace potassium. 4. Dehydration, fluid resuscitation. 5. Hypertension. Continue home medications. 6. Right knee pain and abdominal pain. Pain management with 1 mg of morphine every 8 hours and repeat blood count tomorrow. Further recommendation per clinical course. MD KATHARINA Reyes/MODL /[id number]
[2019-05-13 18:45] VITALS: BP 101/56
[2019-05-13 20:00] VITALS: BP 101/56
[2019-05-13] MEDS: MORPHINE SULFATE 2 MG/ML SYR 1ML IV PRN (20:15)
[2019-05-13] MEDS: ONDANSETRON HCL INJ 2MG/ML 2ML 2 MG/ML VIAL IV PRN (20:15)
[2019-05-13] MEDS ORDERED: ONDANSETRON HCL INJ 2MG/ML 2ML 2 MG/ML VIAL ONE (20:18)
[2019-05-13 22:15] VITALS: BP 101/56
[2019-05-13 22:16] LABS: CREATINE KINASE MB 2.6 ng/mL (0-5.0)
[2019-05-14] VITALS (7 sets, daily range): BP systolic 90–123; BP diastolic 53–58
[2019-05-14] MEDS: SODIUM CHLORIDE 0.9% 1000ML 1,000 ML IV SCH ×3 (01:19→23:42)
[2019-05-14 01:20] LABS: CLARITY,URINE CLOUDY (CLEAR); COLOR,URINE YELLOW (YELLOW); LEUKOCYTE ESTERASE ,URINE TRACE (NEGATIVE); NITRITE,URINE NEGATIVE (NEGATIVE); PROTEIN,URINE DIPSTICK 1+ (NEGATIVE)
[2019-05-14] MEDS: METRONIDAZOLE 500MG/NS 100ML 100 ML IV SCH ×3 (01:20→17:49)
[2019-05-14 01:21] LABS: BILIRUBIN,URINE NEGATIVE (NEGATIVE); KETONES,URINE NEGATIVE (NEGATIVE); URINE UROBILINOGEN 0.2 mg/dL (0.2 - 1)
[2019-05-14 01:33] LABS: BACTERIA,URINE MANY /HPF; EPITHELIAL CELLS,URINE FEW /LPF; RENAL EPITHELIAL CELLS,URINE MODERATE; TRANSITIONAL EPI CELLS,URINE FEW
[2019-05-14] MEDS: ONDANSETRON HCL INJ 2MG/ML 2ML 2 MG/ML VIAL IV PRN ×3 (02:15→16:05)
[2019-05-14] MEDS: MORPHINE SULFATE 2 MG/ML SYR 1ML IV PRN ×2 (02:15→16:05)
[2019-05-14 06:32] LABS: BASOPHILS # (AUTO) 0.1 (0.0-0.1); BASOPHILS % 0.3 % (0.0-1.0); EOSINOPHILS % 0.1 % (0.0-6.0); HEMATOCRIT 32.3 % (34.2-44.1); HEMOGLOBIN 10.6 g/dL (12.0-16.0); LYMPHOCYTES # (AUTO) 0.8 (1.0-3.2); LYMPHOCYTES % 5.3 % (18.0-39.1); MEAN CORPUSCULAR HGB CONC 32.8 g/dL (31-35); MEAN CORPUSCULAR VOLUME 85.2 fL (81-99); MONOCYTES # (AUTO) 1.9 (0.2-0.8); MONOCYTES % 12.7 % (4.4-11.3); NEUTROPHILS # (AUTO) 11.8 (2.1-6.9); NEUTROPHILS % 80.4 % (38.7-80.0); PLATELET COUNT 291 x10e3/uL (140-360); RED BLOOD COUNT 3.79 x10e6/uL (3.6-5.1); RED CELL DISTRIBUTION WIDTH 15.2 % (11.7-14.4)
[2019-05-14 06:55] LABS: ANION GAP 10.2 mmol/L (8-16); CREATININE, SERUM 2.38 mg/dL (0.57-1.11)
--- NOTE | 2019-05-14 06:56 | NUR ---
Bedside shift report received from night nurse. Patient is resting in bed. No acute distress noted. Call light within reach. Bed in the lowest position
[2019-05-14 07:00] LABS: CALCIUM 6.8 mg/dL (8.4-10.2); POTASSIUM 2.2 mmol/L (3.5-5.1)
--- NOTE | 2019-05-14 07:03 | NUR ---
spoke to lab regarding results. primary nurse made aware of results.
[2019-05-14 07:26] LABS: CREATINE KINASE MB 2.3 ng/mL (0-5.0)
[2019-05-14] MEDS ORDERED: POTASSIUM CHLORIDE 20MEQ/100ML 200 ML IV ONE (07:30)
[2019-05-14 08:37] LABS: MAGNESIUM 1.6 MG/DL (1.3-2.1)
[2019-05-14] MEDS ORDERED: CALCIUM GLUCONATE 10% INJ 4.65 MEQ in SODIUM CHLORIDE 0.9% 50ML 50 ML IV ONE (09:00)
[2019-05-14] MEDS ORDERED: LEVOCETIRIZINE D5 MG PO (11:07)
[2019-05-14] MEDS ORDERED: METRONIDAZOLE250 MG PO (11:07)
[2019-05-14] MEDS ORDERED: TIZANIDINE HCL4 MG PO (11:07)
[2019-05-14] MEDS ORDERED: ULTRAM50 MG PO (11:07)
[2019-05-14] MEDS ORDERED: ZOFRAN4 MG PO (11:07)
[2019-05-14] MEDS ORDERED: DICYCLOMINE HCL10 MG PO (11:07)
[2019-05-14] MEDS ORDERED: AZELASTINE137 MCG/0. (11:07)
[2019-05-14] MEDS ORDERED: OXYBUTYNIN CHLOR5 M1 PO (11:07)
[2019-05-14] MEDS ORDERED: DIPHENOXYLATE-1 EACH PO (11:07)
[2019-05-14] MEDS ORDERED: ALPRAZOLAM0.5 MG PO (14:08)
[2019-05-14] MEDS: DICYCLOMINE HCL 10 MG CAP PO SCH (16:05)
[2019-05-14] MEDS: SUCRALFATE 1 GM/10 ML SUSP PO SCH (16:05)
[2019-05-14] MEDS: OXYBUTYNIN CHLORIDE XL 5 MG TAB PO SCH (16:05)
[2019-05-14] MEDS: AZELASTINE HCL 137 MCG NASAL SPRAY NS SCH ×2 (16:05→16:38)
--- NOTE | 2019-05-14 18:44 | NUR ---
Bedside shift report given to oncoming nurse. Patient is resting in bed. No acute distress noted. Call light within reach. Bed in the lowest position.
[2019-05-14] MEDS ORDERED: METHYLPREDNISOLONE SOD SUCC 125 MG/2ML VIAL IV SCH (18:45)
--- NOTE | 2019-05-14 19:00 | NUR ---
patient received awake, alert, lying quietly in bed. no c/o pain noted. ivf continue to infuse without difficulty. pm assessment complete. patient instructed to call for assistance when needed.
--- NOTE | 2019-05-14 19:17 | Progress Note ---
DATE: 05/14/2019 SUBJECTIVE: This is a 63-year-old female who came in yesterday with colitis with multiple visits to the ER. The patient continues to have some abdominal pain. Also continues to have some right-sided knee pain, which is excruciating and is about 8/10 in intensity. The patient's abdominal pain and diarrhea have dissipated some. Still feeling weak and tired and fatigued. OBJECTIVE: VITAL SIGNS: Temperature is 97.4, pulse of 82, respirations of 20, blood pressure is 105/72, pulse oximetry 100% on 2 L of oxygen. HEENT: Normocephalic, atraumatic. Pupils are reactive. CVS: S1 and S2 normal. Regular rate and rhythm. ABDOMEN: Tender in the left lower quadrant, tender in the upper epigastric area and the right upper quadrant. No rebound tenderness present. LUNGS: Decreased air entry. EXTREMITIES: The patient's right knee with extreme tenderness with erythema and also swelling. Lower extremities, no tenderness and no edema. LABORATORY VALUES: White count is down to 14,000 compared to 22,000 yesterday, hemoglobin of 10.6, hematocrit of 32.3, neutrophil count down from 81 to 80.4. Chemistry, sodium today is 134, potassium of 2.2, creatinine of 2.38, calcium of 6.8, ionized calcium is 1.0, magnesium of 1.6. Troponins x2 has been trended to be negative. ASSESSMENT: Ms. Livia Esposito with: 1. Acute kidney injury. 2. Acute colitis. 3. Right knee osteoarthritis. 4. Dehydration. 5. Hypokalemia. 6. Hypocalcemia. PLAN: 1. Continue with current antibiotics. The patient is currently on metronidazole and Levaquin, on renal dosing, and will continue with this. 2. Continue with replacing potassium. We will start her on 40 mEq daily of potassium. 3. Gastritis. Continue on pantoprazole. 4. Pain, which we will continue 1 mg q.6 of morphine. We will also give her Solu-Medrol 80 mg IV x1 push for her right possible gouty arthritis. In lieu of her renal function, cannot give her NSAIDs. Further recommendation and clinical course, the patient is making some strides and progress, but as told not ready to be discharged. Further recommendation and clinical course, we will continue to monitor the patient and also start weaning her off fluids and checking her sodium tomorrow and potassium and calcium tomorrow for further recommendation per clinical course. MD KATHARINA Reyes/PAULL /[id number]
[2019-05-14] MEDS: TIZANIDINE HCL 4 MG TAB PO SCH (20:56)
[2019-05-14] MEDS: ALPRAZOLAM 0.5 MG TAB PO PRN (20:56)
[2019-05-15] VITALS (8 sets, daily range): BP systolic 78–145; BP diastolic 42–98
--- NOTE | 2019-05-15 00:18 | NUR ---
iv to right wrist d/c'd due to redness and leaking at site. new #20 gauge placed to left wrist x 1 stick. ivf continue to infuse without difficulty.
[2019-05-15] MEDS: METRONIDAZOLE 500MG/NS 100ML 100 ML IV SCH ×3 (01:17→17:45)
[2019-05-15] MEDS: PANTOPRAZOLE SOD 40 MG TABEC PO SCH (05:39)
[2019-05-15 05:47] LABS: BASOPHILS % 0.2 % (0.0-1.0); EOSINOPHILS % 0.2 % (0.0-6.0); HEMATOCRIT 29.9 % (34.2-44.1); HEMOGLOBIN 9.9 g/dL (12.0-16.0); LYMPHOCYTES % 7.9 % (18.0-39.1); MEAN CORPUSCULAR HGB CONC 33.1 g/dL (31-35); MEAN CORPUSCULAR VOLUME 84.7 fL (81-99); MONOCYTES # (AUTO) 1.4 (0.2-0.8); MONOCYTES % 11.6 % (4.4-11.3); NEUTROPHILS # (AUTO) 9.6 (2.1-6.9); NEUTROPHILS % 78.6 % (38.7-80.0); PLATELET COUNT 282 x10e3/uL (140-360); RED BLOOD COUNT 3.53 x10e6/uL (3.6-5.1); RED CELL DISTRIBUTION WIDTH 15.8 % (11.7-14.4)
[2019-05-15 06:11] LABS: ANION GAP 8.5 mmol/L (8-16); CREATININE, SERUM 2.15 mg/dL (0.57-1.11); MAGNESIUM 1.4 MG/DL (1.3-2.1)
[2019-05-15 06:12] LABS: CALCIUM 6.8 mg/dL (8.4-10.2); POTASSIUM 2.5 mmol/L (3.5-5.1)
--- NOTE | 2019-05-15 06:44 | NUR ---
Bedside shift report received from night nurse. Patient is resting in bed. No acute distress noted. Call light within reach.
[2019-05-15] MEDS ORDERED: POTASSIUM CHLORIDE 20 MEQ TAB CR PO ONE ×2 (07:25→18:00)
[2019-05-15] MEDS ORDERED: POTASSIUM CHLORIDE 20MEQ/100ML 200 ML IV ONE (07:30)
[2019-05-15] MEDS ORDERED: CALCIUM GLUCONATE 10% INJ 4.65 MEQ in SODIUM CHLORIDE 0.9% 50ML 50 ML IV ONE (08:00)
[2019-05-15] MEDS: SUCRALFATE 1 GM/10 ML SUSP PO SCH ×2 (08:30→16:25)
[2019-05-15] MEDS: SODIUM CHLORIDE 0.9% 1000ML 1,000 ML IV SCH ×2 (08:30→17:45)
[2019-05-15] MEDS: POTASSIUM CHLORIDE 10MEQ EA PO SCH (08:38)
[2019-05-15] MEDS: OXYBUTYNIN CHLORIDE XL 5 MG TAB PO SCH ×2 (08:38→16:25)
[2019-05-15] MEDS: DICYCLOMINE HCL 10 MG CAP PO SCH ×2 (08:38→16:25)
[2019-05-15] MEDS: AZELASTINE HCL 137 MCG NASAL SPRAY NS SCH ×2 (08:43→16:25)
[2019-05-15] MEDS: ACETAMINOPHEN 325 MG TAB PO PRN (09:40)
[2019-05-15] MEDS: ALPRAZOLAM 0.5 MG TAB PO PRN ×2 (09:48→21:34)
[2019-05-15] MEDS: DIPHENOXYLATE/ATROPINE TAB PO PRN (12:51)
--- NOTE | 2019-05-15 14:45 | Progress Note ---
DATE: SUBJECTIVE: The patient is a 63-year-old, who came in with left knee pain with diarrhea, colitis, and history of leukocytosis and dehydration. The patient is still complaining lot of right knee pain, abdominal pain, and also diarrhea, which continues. As per the nursing about 4 to 5 bowel movements a day, which is semi solid. OBJECTIVE: VITAL SIGNS: Temperature is 96.3, pulse 86, respirations of 18, blood pressure is 109/69, and pulse oximetry of 98%. HEENT: Normocephalic and atraumatic. Pupils are reactive to light and accommodation. CVS: S1 and S2 normal. Regular rate and rhythm. ABDOMEN: Tender in the epigastric area. EXTREMITIES: Right knee with positive tenderness. Positive fluid. Positive erythema and positive for warmth. LABORATORY VALUES: White count is down to 12.16, hemoglobin of 9.9, hematocrit of 29.9, neutrophil count of 78.6, which is better. Chemistry; sodium of 133, potassium of 2.5, BUN of 21, creatinine of 2.15, which is better too. Calcium of 6.8. The patient has been given potassium replacement and calcium replacement for hypokalemia and hypocalcemia. Colitis better. ASSESSMENT AND PLAN: Continue current medication and a consult with Dr. Dudley will be done for her right knee pain, which is probably arthritis. Also, do uric acid level and sedimentation rate level. Further recommendation per clinical course. DISPOSITION: One to two days and anti-diarrheal regimen has been started for the patient. MD KATHARINA Reyes/MODL /[id number]
--- NOTE | 2019-05-15 15:51 | Diagnostic Imaging Report ---
Right knee, 3 views. History: Right knee pain. Findings: There is increased suprapatellar soft tissue density. Lateral soft tissue calcification is also noted. The bones are diffusely osteopenic. There is no evidence of fracture or dislocation. There are no lytic or sclerotic lesions. There is severe tricompartmental joint space narrowing with osteophytosis. IMPRESSION: Tricompartmental DJD of the right knee with probable joint effusion. Signed by: Osman Dangelo on 05/15/2019 3:48 PM
[2019-05-15] MEDS: LEVOFLOXACIN 500MG/D5W 100ML 100 ML IV SCH (16:25)
[2019-05-15] MEDS: COLESTIPOL HCL 1 G TAB PO SCH (16:25)
--- NOTE | 2019-05-15 18:52 | NUR ---
Bedside shift report given to oncoming nurse. Patient is resting in bed. No acute distress noted at this time. Call light within reach. Bed in the lowest position.
[2019-05-15] MEDS: TIZANIDINE HCL 4 MG TAB PO SCH (21:00)
[2019-05-16] VITALS (8 sets, daily range): BP systolic 99–143; BP diastolic 58–76
[2019-05-16] MEDS: METRONIDAZOLE 500MG/NS 100ML 100 ML IV SCH ×3 (02:00→18:25)
[2019-05-16] MEDS: SODIUM CHLORIDE 0.9% 1000ML 1,000 ML IV SCH ×3 (02:30→13:39)
[2019-05-16] MEDS: PANTOPRAZOLE SOD 40 MG TABEC PO SCH (05:06)
[2019-05-16 05:30] LABS: BASOPHILS % 0.2 % (0.0-1.0); EOSINOPHILS % 0.1 % (0.0-6.0); HEMATOCRIT 32.6 % (34.2-44.1); HEMOGLOBIN 10.7 g/dL (12.0-16.0); LYMPHOCYTES # (AUTO) 0.8 (1.0-3.2); LYMPHOCYTES % 5.7 % (18.0-39.1); MEAN CORPUSCULAR HEMOGLOBIN 27.9 pg (28-32); MEAN CORPUSCULAR HGB CONC 32.8 g/dL (31-35); MEAN CORPUSCULAR VOLUME 84.9 fL (81-99); MONOCYTES # (AUTO) 1.5 (0.2-0.8); MONOCYTES % 10.9 % (4.4-11.3); NEUTROPHILS # (AUTO) 11.2 (2.1-6.9); NEUTROPHILS % 81.5 % (38.7-80.0); PLATELET COUNT 277 x10e3/uL (140-360); RED BLOOD COUNT 3.84 x10e6/uL (3.6-5.1); RED CELL DISTRIBUTION WIDTH 16.1 % (11.7-14.4)
[2019-05-16 05:49] LABS: CREATININE, SERUM 1.7 mg/dL (0.57-1.11)
[2019-05-16 05:51] LABS: CALCIUM 6.7 mg/dL (8.4-10.2)
[2019-05-16] MEDS ORDERED: POTASSIUM CHLORIDE 20MEQ/100ML 200 ML IV ONE (06:45)
[2019-05-16] MEDS ORDERED: POTASSIUM CHLORIDE 20 MEQ TAB CR PO ONE ×2 (07:20→18:00)
[2019-05-16] MEDS ORDERED: CALCIUM GLUCONATE 10% INJ 4.65 MEQ in SODIUM CHLORIDE 0.9% 50ML 50 ML IV ONE (08:00)
[2019-05-16] MEDS: SUCRALFATE 1 GM/10 ML SUSP PO SCH ×2 (08:29→16:30)
--- NOTE | 2019-05-16 08:30 | NUR ---
The pt. c/o painful iv and it has been explained to her that the potassium causes the hurting but demands a restart. The iv was re sited to the other side of the wrist and in infusing well.
[2019-05-16] MEDS: DICYCLOMINE HCL 10 MG CAP PO SCH ×2 (09:00→17:00)
[2019-05-16] MEDS: AZELASTINE HCL 137 MCG NASAL SPRAY NS SCH ×2 (09:00→17:00)
[2019-05-16] MEDS: COLESTIPOL HCL 1 G TAB PO SCH ×2 (09:00→17:00)
[2019-05-16] MEDS: OXYBUTYNIN CHLORIDE XL 5 MG TAB PO SCH ×2 (09:00→17:00)
[2019-05-16] MEDS: POTASSIUM CHLORIDE 10MEQ EA PO SCH (09:00)
--- NOTE | 2019-05-16 10:52 | NUR ---
ASSESSMENT: Spiritual concern Pt requested prayer for her pain. Intervention: Provided empathic listening, hospitality and prayer. Provided information on ho to contact manager ecommerce, if needed. Outcome: No need to follow at this time. ESDRAS COOPER [employer] Spiritual Care Department O: [phone]
--- NOTE | 2019-05-16 18:50 | Progress Note ---
DATE: SUBJECTIVE: A 63-year-old female, who came in with colitis and gastroenteritis. The patient also had right knee pain, status post drainage by Ortho. The patient is feeling better. Abdominal pain is better, but still continue with diarrhea has slowed down. The patient is currently on antibiotic. OBJECTIVE: VITAL SIGNS: Temperature is 96.2, pulse of 89, respirations of 22, blood pressure is 118/74, pulse oximetry of 98%. HEENT: Normocephalic and atraumatic. Pupils are reactive. CVS: S1 and S2 normal. Regular rate and rhythm. ABDOMEN: Tender still in the epigastric area, left lower quadrant, right lower quadrant. EXTREMITIES: No clubbing. No cyanosis. Trace edema. LABORATORY VALUES: White count is up 13,000, hemoglobin of 10.7, hematocrit of 32.6. Chemistries; show sodium of 136, potassium of 3.0, BUN of 16, creatinine of 1.70, also showed calcium is 6.7. ASSESSMENT: Ms. Livia Esposito with: 1. Gastroenteritis. 2. Colitis. 3. Leukocytosis. 4. Lactic acidosis. 5. Sepsis. 6. Hypokalemia. 7. Hypercalcemia. 8. Obesity. 9. Acute on chronic renal failure. PLAN: Continue with current management. The patient's creatinine has normalized to 1.70, which is baseline for her. Antibiotics are ongoing. The patient did have right knee drainage by Ortho. Continue to monitor the patient. Further recommendation and clinical course. DISPOSITION: Discharge in 1 to 2 days depending on progress, more likely Sunday or Sunday. MD KATHARINA Reyes/MODL /[id number]
[2019-05-16] MEDS: TIZANIDINE HCL 4 MG TAB PO SCH (20:27)
[2019-05-16] MEDS: ALPRAZOLAM 0.5 MG TAB PO PRN (23:38)
[2019-05-17] VITALS (8 sets, daily range): BP systolic 126–145; BP diastolic 60–85
[2019-05-17] MEDS: DIPHENOXYLATE/ATROPINE TAB PO PRN ×2 (00:31→14:25)
[2019-05-17] MEDS: SODIUM CHLORIDE 0.9% 1000ML 1,000 ML IV SCH ×2 (00:31→04:21)
[2019-05-17] MEDS: METRONIDAZOLE 500MG/NS 100ML 100 ML IV SCH ×3 (02:00→18:12)
[2019-05-17] MEDS: DICYCLOMINE HCL 10 MG CAP PO SCH ×2 (04:21→16:51)
[2019-05-17] MEDS: PANTOPRAZOLE SOD 40 MG TABEC PO SCH (05:02)
--- NOTE | 2019-05-17 06:25 | NUR ---
DR. JENKINS DOING ROUNDS. NEW ORDERS RECEIVED TO DC IVF, PHYSICAL THERAPY AND CHANGE CARAFATE TO [facility].
--- NOTE | 2019-05-17 07:15 | Progress Note ---
DATE: SUBJECTIVE: The patient is a 63-year-old female, who came in with sepsis, abdominal infection, colitis, and also right knee pain, status post drainage, and steroid injection for osteoarthritis. Currently, the patient still has some diarrhea movement, but is better. Continues to have abdominal pain, shortness of breath which has started from yesterday. Fluids have been stopped. The patient is feeling stable, but not completely better. Continues to have some abdominal pain. OBJECTIVE: VITAL SIGNS: Temperature is 96.2, pulse of 84, respirations of 19, pulse oximetry of 100% on 2 L of oxygen. HEENT: Normocephalic, atraumatic. CVS: S1 and S2 normal. Regular rate and rhythm. LUNGS: Decreased air entry into lung bases. ABDOMEN: Tender in the epigastrium and the left lower quadrant. EXTREMITIES: No clubbing, no cyanosis. Trace edema. LABORATORY VALUES: Yesterday's white count was 13,000. Yesterday's sodium and potassium were 136 and 3.0. Glucose and calcium were low. Labs are pending today. ASSESSMENT: Ms. Livia Esposito is a 63-year-old with: 1. Gastroenteritis/colitis. 2. Leukocytosis. 3. Lactic acidosis. 4. Sepsis, resolved. 5. Hyperkalemia. 6. Hypercalcemia. 7. Acute on chronic renal failure. PLAN: The patient is better, but still continues with abdominal pain. Continue IV antibiotics. Continue IV pain medication. Further recommendation per clinical course. We will continue to monitor the patient. Discharge planning between Sunday and tomorrow, and we will continue to monitor the patient. MD KATHARINA Reyes/MODL /[id number]
[2019-05-17 07:25] LABS: ALBUMIN 2.5 g/dL (3.5-5.0); ANION GAP 8.1 mmol/L (8-16); CREATININE, SERUM 1.52 mg/dL (0.57-1.11); MAGNESIUM 1.2 MG/DL (1.3-2.1); POTASSIUM 4.1 mmol/L (3.5-5.1)
[2019-05-17 07:28] LABS: CALCIUM 6.9 mg/dL (8.4-10.2)
--- NOTE | 2019-05-17 07:33 | NUR ---
Notified Dr Shen regarding Labs Co2 and Ca, new orders received, patient looks anxious, redirected her, educated her to take deep breathe and relax, not in any distress, keep monitoring
[2019-05-17] MEDS: OXYBUTYNIN CHLORIDE XL 5 MG TAB PO SCH ×2 (09:19→17:25)
[2019-05-17] MEDS: SUCRALFATE 1 GM/10 ML SUSP PO SCH ×4 (09:19→22:14)
[2019-05-17] MEDS: COLESTIPOL HCL 1 G TAB PO SCH ×2 (09:19→17:25)
[2019-05-17] MEDS: AZELASTINE HCL 137 MCG NASAL SPRAY NS SCH ×2 (09:19→17:25)
[2019-05-17] MEDS: POTASSIUM CHLORIDE 10MEQ EA PO SCH (09:22)
[2019-05-17] MEDS ORDERED: CALCIUM GLUCONATE 10% INJ 4.65 MEQ in SODIUM CHLORIDE 0.9% 50ML 50 ML IV ONE (09:30)
[2019-05-17] MEDS: ALPRAZOLAM 0.5 MG TAB PO PRN (14:42)
[2019-05-17] MEDS: TRAMADOL HCL 50 MG TAB PO PRN (14:44)
[2019-05-17] MEDS: LEVOFLOXACIN 500MG/D5W 100ML 100 ML IV SCH (17:02)
[2019-05-17 18:21] LABS: ANION GAP 11.4 mmol/L (8-16); CALCIUM 7.2 mg/dL (8.4-10.2); CREATININE, SERUM 1.53 mg/dL (0.57-1.11); POTASSIUM 4.4 mmol/L (3.5-5.1)
--- NOTE | 2019-05-17 19:30 | NUR ---
received report from day nurse. patient is resting comfortably in the bed. bed is in the lowest position and call light is within reach. continues on O2 via the nasal cannula. No complaints of pain or discomfort noted. will continue to monitor patient.
[2019-05-17] MEDS: TIZANIDINE HCL 4 MG TAB PO SCH (22:14)
[2019-05-18] VITALS (8 sets, daily range): BP systolic 116–139; BP diastolic 58–78
[2019-05-18] MEDS: METRONIDAZOLE 500MG/NS 100ML 100 ML IV SCH ×3 (02:00→16:53)
[2019-05-18] MEDS: PANTOPRAZOLE SOD 40 MG TABEC PO SCH (05:48)
--- NOTE | 2019-05-18 07:10 | NUR ---
RECD PT IN BED RESTING ,DENIES PAIN
--- NOTE | 2019-05-18 07:10 | NUR ---
report given to oncoming nurse, patient is resting in bed. bed is in lowest position and call light is within reach.
[2019-05-18 07:16] LABS: ANION GAP 12.5 mmol/L (8-16); CREATININE, SERUM 1.57 mg/dL (0.57-1.11); POTASSIUM 3.5 mmol/L (3.5-5.1)
[2019-05-18] MEDS: LIDOCAINE VISC 2% SOLN 15 ML UDC PO SCH ×3 (07:30→16:30)
--- NOTE | 2019-05-18 08:24 | Progress Note ---
DATE: SUBJECTIVE: The patient is a 63-year-old, came in with lactic acidosis and also with sepsis. The patient also has abdominal pain, feeling better. Diarrhea is better. Chest pain is better. The patient has some canker sores in the oral cavity. Complains of pain there. OBJECTIVE: VITAL SIGNS: Temperature is 96.9, pulse of 84, respirations of 18, blood pressure is 116/68, and pulse oximetry of 96% on 2 liters. HEENT: Normocephalic and atraumatic. Pupils are reactive to light and accommodation. CVS: S1 and S2 normal. Regular rate and rhythm. ABDOMEN: Slightly distended and tender in the left lower quadrant. EXTREMITIES: No clubbing, no cyanosis, and no edema. LABORATORY VALUES: White count was 13,000 on . Chemistries show sodium of 133, potassium 4.4, CO2 of 10, was 9 yesterday; creatinine of 1.53, which is improved; EGFR of 34, and calcium is up to 7.2. ASSESSMENT: Ms. Livia Esposito with: 1. Gastroenteritis/colitis. 2. Leukocytosis. 3. Lactic acidosis. 4. Metabolic acidosis. 5. Sepsis. 6. Hyperkalemia. 7. Hypercalcemia. 8. Low sodium and bicarb, and acute on chronic renal failure. PLAN: Continue current monitoring. The patient's bicarb has been low from yesterday. If needed, bicarb will be added from diarrhea loss. Continue with IV antibiotics at this time. Disposition, the patient is feeling clinically much better. Plan discharge tomorrow if CO2 levels are good and the white count is good. Further recommendation per clinical course. Replace potassium as needed and calcium as needed. Fabien Shen MD ASJ/MODL /[id number]
[2019-05-18] MEDS: SUCRALFATE 1 GM/10 ML SUSP PO SCH ×4 (08:36→21:22)
[2019-05-18] MEDS: OXYBUTYNIN CHLORIDE XL 5 MG TAB PO SCH ×2 (08:36→16:52)
[2019-05-18] MEDS: DICYCLOMINE HCL 10 MG CAP PO SCH ×2 (08:36→16:53)
[2019-05-18] MEDS: POTASSIUM CHLORIDE 10MEQ EA PO SCH (08:37)
[2019-05-18] MEDS: NYSTATIN SUSPENSION 5 ML UDC PO SCH ×4 (08:37→21:22)
[2019-05-18] MEDS: AZELASTINE HCL 137 MCG NASAL SPRAY NS SCH ×2 (08:37→17:00)
[2019-05-18] MEDS: COLESTIPOL HCL 1 G TAB PO SCH ×2 (08:37→16:52)
[2019-05-18] MEDS: ALPRAZOLAM 0.5 MG TAB PO PRN ×2 (08:38→21:22)
[2019-05-18] MEDS ORDERED: SODIUM BICARBONATE 650 MG TAB PO SCH (09:00)
[2019-05-18] MEDS: SODIUM BICARBONATE 650 MG TAB PO SCH ×3 (09:00→21:22)
[2019-05-18 17:58] LABS: ANION GAP 13.7 mmol/L (8-16); CREATININE, SERUM 1.71 mg/dL (0.57-1.11)
[2019-05-18 18:08] LABS: CALCIUM 6.8 mg/dL (8.4-10.2)
[2019-05-18 18:09] LABS: POTASSIUM 3.7 mmol/L (3.5-5.1)
--- NOTE | 2019-05-18 18:30 | NUR ---
PT C/O ABD PAIN MEDICATED,,O2 2L NC IN PLACE,
[2019-05-18] MEDS: TRAMADOL HCL 50 MG TAB PO PRN (18:34)
[2019-05-18 19:32] LABS: BASOPHILS # (AUTO) 0.1 (0.0-0.1); BASOPHILS % 0.3 % (0.0-1.0); HEMATOCRIT 38.3 % (34.2-44.1); HEMOGLOBIN 12.1 g/dL (12.0-16.0); LYMPHOCYTES # (AUTO) 1.3 (1.0-3.2); LYMPHOCYTES % 5.5 % (18.0-39.1); MEAN CORPUSCULAR HEMOGLOBIN 27.7 pg (28-32); MEAN CORPUSCULAR HGB CONC 31.6 g/dL (31-35); MEAN CORPUSCULAR VOLUME 87.6 fL (81-99); MONOCYTES # (AUTO) 1.6 (0.2-0.8); MONOCYTES % 6.9 % (4.4-11.3); NEUTROPHILS # (AUTO) 19.4 (2.1-6.9); NEUTROPHILS % 84.2 % (38.7-80.0); PLATELET COUNT 424 x10e3/uL (140-360); RED BLOOD COUNT 4.37 x10e6/uL (3.6-5.1); RED CELL DISTRIBUTION WIDTH 16.9 % (11.7-14.4)
[2019-05-18 19:58] LABS: LYMPHOCYTES % (MANUAL) 7 % (19-48); MONOCYTES % (MANUAL) 8 % (3.4-9.0); NEUTROPHILS % (MANUAL) 85 % (40-74); PLATELET ESTIMATE ADEQUATE; PLATELET MORPHOLOGY COMMENT NORMAL; RBC MORPHOLOGY COMMENT NORMAL
[2019-05-18] MEDS: TIZANIDINE HCL 4 MG TAB PO SCH (21:22)
[2019-05-19] VITALS (7 sets, daily range): BP systolic 118–155; BP diastolic 62–86
[2019-05-19] MEDS: METRONIDAZOLE 500MG/NS 100ML 100 ML IV SCH ×3 (02:00→18:36)
[2019-05-19] MEDS: PANTOPRAZOLE SOD 40 MG TABEC PO SCH (05:17)
[2019-05-19] MEDS: NYSTATIN SUSPENSION 5 ML UDC PO SCH ×5 (05:17→21:00)
--- NOTE | 2019-05-19 05:33 | Consultation ---
DATE OF CONSULTATION: 05/16/2019 CHIEF COMPLAINT: Right knee pain. HISTORY OF PRESENT ILLNESS: This patient is a 63-year-old female, who is well known to us, who complains of right knee pain. She is admitted for gastroenteritis. She subsequently complained of increased swelling and pain in the right knee. She states she cannot walk on the right leg because of the pain. PAST MEDICAL HISTORY: See H and P. PAST SURGICAL HISTORY: Bilateral hip replacement done by us. SOCIAL HISTORY: The patient denies EtOH or nicotine use. She lives at home with her . PHYSICAL EXAMINATION: GENERAL: This is a well-nourished female. She is very hard of hearing. She is in no apparent distress. EXTREMITIES: Gross inspection of her right knee shows a 2+ effusion. There is no erythema or signs of infection. The knee is diffusely tender to palpation. Range of motion is limited due to pain and shows 0 degrees to 60 degrees of flexion. The knee is grossly stable. Distal neurovascular exam is grossly normal. IMAGING DATA: X-rays of the right knee were obtained and showed severe end-stage tricompartmental osteoarthritis. ASSESSMENT AND PLAN: This is a 63-year-old female with severe end-stage arthritis in her right knee. Her symptoms are most consistent with a flare-up of her arthritis with a resultant effusion. The treatment options were discussed with the patient. After discussing the options, we elected to proceed with an aspiration and injection of her right knee. After obtaining verbal consent, I prepped the knee in a sterile manner. I anesthetized the site with 3 mL of lidocaine 2% using an 18-gauge needle. I aspirated roughly 40 mL of benign clear yellow synovial fluid. I then injected a mixture of 1 mL Depo Medrol 40 mg and 6 mL of lidocaine 2%. The patient tolerated the aspiration and injection well. She was informed that symptomatic relief may take a few days. The patient was advised to return to our office on an as-needed basis for symptomatic treatment of her osteoarthritis. I also explained that sometime in the future, she may wish to consider a right total knee replacement. She is welcome to see us as needed. Dictated by Aníbal Slaughter PA-C MD BEBETO Eddy/MODL :20:11 /[id number]
[2019-05-19 06:28] LABS: BASOPHILS % 0.2 % (0.0-1.0); HEMATOCRIT 35.9 % (34.2-44.1); LYMPHOCYTES # (AUTO) 1.1 (1.0-3.2); LYMPHOCYTES % 6.3 % (18.0-39.1); MEAN CORPUSCULAR HEMOGLOBIN 28.3 pg (28-32); MEAN CORPUSCULAR HGB CONC 33.4 g/dL (31-35); MEAN CORPUSCULAR VOLUME 84.7 fL (81-99); MONOCYTES # (AUTO) 1.1 (0.2-0.8); MONOCYTES % 6.3 % (4.4-11.3); NEUTROPHILS # (AUTO) 15.3 (2.1-6.9); NEUTROPHILS % 85.1 % (38.7-80.0); PLATELET COUNT 401 x10e3/uL (140-360); RED BLOOD COUNT 4.24 x10e6/uL (3.6-5.1); RED CELL DISTRIBUTION WIDTH 16.9 % (11.7-14.4)
[2019-05-19 06:58] LABS: ALBUMIN 2.8 g/dL (3.5-5.0); ALBUMIN/GLOBULIN RATIO 1.3 (0.8-2.0); ANION GAP 9.8 mmol/L (8-16); CREATININE, SERUM 1.8 mg/dL (0.57-1.11)
--- NOTE | 2019-05-19 07:02 | NUR ---
Received bedside shift report from off going nurse. Patient is resting in bed. No acute distress noted at this time. Call light within reach. Bed in the lowest position.
[2019-05-19 07:05] LABS: CALCIUM 6.5 mg/dL (8.4-10.2); POTASSIUM 2.8 mmol/L (3.5-5.1)
[2019-05-19] MEDS: LIDOCAINE VISC 2% SOLN 15 ML UDC PO SCH ×3 (07:30→16:16)
--- NOTE | 2019-05-19 07:44 | Progress Note ---
DATE: SUBJECTIVE: 63-year-old female with a history of diarrhea. The patient is asymptomatic at this time. Diarrhea is very minimal, but the patient's labs show white count, which is elevated at 23,000, probably secondary to steroid injection got in the knee. Today, it is down. The patient's bicarb trends to be lower secondary to metabolic acidosis from diarrhea and infection. CURRENT MEDICATIONS: Reviewed. The patient is feeling better. However, labs are not associating with her symptoms. OBJECTIVE: VITAL SIGNS: Temperature is 97.1, pulse 78, respirations 18, blood pressure 120/74, and pulse oximetry 93%. HEENT: Normocephalic and atraumatic. Pupils are reactive. CVS: S1 and S2 normal. LUNGS: Clear. ABDOMEN: Slightly tender in the epigastrium. EXTREMITIES: No clubbing, no cyanosis, and no edema. LABORATORY DATA: Yesterday's white count was 23,000 with left shift, today is 18,000 with neutrophil count of 85. Chemistries; CO2 level has gone up, sodium 140, potassium 2.8, GFR 28, and calcium 6.5. Microbiology, no growth in blood cultures. ASSESSMENT: Ms. Livia Esposito with: 1. Sepsis secondary to gastrointestinal infection. 2. Metabolic acidosis. 3. History of lactic acidosis. 4. Hypertension. 5. Right knee pain, status post knee injection and also aspiration. PLAN: Continue on the same regimen. The patient is on bicarb 3 times a day. We will continue on this. We will continue monitoring the patient very closely with her lytes. Replace calcium. Replace potassium. A Renal consult is on board. Continue to regulate her diarrhea. Further recommendation per clinical course. We will continue to monitor the patient. Consult has been ordered for Dr. Stanton and also for Renal. MD JAYLEN ReyesJ/MODL /[id number]
[2019-05-19] MEDS ORDERED: POTASSIUM CHLORIDE 20MEQ/100ML 200 ML IV ONE (08:00)
[2019-05-19] MEDS ORDERED: SODIUM CHLORIDE 0.9% 500ML 500 ML ONE (08:11)
[2019-05-19] MEDS: DICYCLOMINE HCL 10 MG CAP PO SCH ×2 (08:13→16:16)
[2019-05-19] MEDS: COLESTIPOL HCL 1 G TAB PO SCH ×2 (08:13→16:16)
[2019-05-19] MEDS: SODIUM BICARBONATE 650 MG TAB PO SCH (08:13)
[2019-05-19] MEDS: OXYBUTYNIN CHLORIDE XL 5 MG TAB PO SCH ×2 (08:13→16:16)
[2019-05-19] MEDS: SUCRALFATE 1 GM/10 ML SUSP PO SCH ×4 (08:13→21:00)
[2019-05-19] MEDS: POTASSIUM CHLORIDE 10MEQ EA PO SCH (08:13)
[2019-05-19] MEDS: AZELASTINE HCL 137 MCG NASAL SPRAY NS SCH ×3 (08:14→16:16)
[2019-05-19] MEDS: ALPRAZOLAM 0.5 MG TAB PO PRN ×2 (09:29→22:55)
[2019-05-19] MEDS ORDERED: CALCIUM GLUCONATE 10% INJ 9.3 MEQ in SODIUM CHLORIDE 0.9% 100 ML 100 ML IV ONE (09:30)
[2019-05-19 09:31] LABS: ANISOCYTOSIS SLIGHT; LYMPHOCYTES % (MANUAL) 5 % (19-48); MONOCYTES % (MANUAL) 12 % (3.4-9.0); NEUTROPHILS % (MANUAL) 83 % (40-74); PLATELET ESTIMATE SLIGHTLY INCREASED; PLATELET MORPHOLOGY COMMENT NORMAL
[2019-05-19 09:32] LABS: RBC MORPHOLOGY COMMENT NORMAL
[2019-05-19] MEDS: TRAMADOL HCL 50 MG TAB PO PRN (13:30)
[2019-05-19] MEDS ORDERED: POTASSIUM CHLORIDE 20MEQ/100ML 100 ML IV ONE (13:45)
[2019-05-19] MEDS ORDERED: MAGNESIUM SULFATE 2GM/50ML 50 ML IV ONE (14:00)
--- NOTE | 2019-05-19 14:30 | Consultation ---
DATE OF CONSULTATION: 05/19/2019 HISTORY OF PRESENT ILLNESS: A 63-year-old female, known to our Nephrology Service, has underlying history of chronic kidney disease, most likely stage 3, presented with abdominal pain and diarrhea, apparently has a significantly elevated white count of 18,000. Renal has been consulted for management of significant acid-base disturbance, hypokalemia, and acute kidney injury. The patient currently sitting up. She is hard of hearing. Denies any shortness of breath or nausea. Admits to abdominal discomfort. Had a loose bowel movement x1. No hematemesis or melena. ALLERGIES: SHE HAS MULTIPLE DRUG ALLERGIES TO AMOXICILLIN, CODEINE, ERYTHROMYCIN, AND TETRACYCLINES. SOCIAL HISTORY: She does not smoke or drink. FAMILY HISTORY: Significant for hypertension. CURRENT MEDICATIONS: 1. The patient received calcium 2 g this morning. 2. She has Flagyl 500 mg IV every 8 hours. 3. She got 20 mEq KCl IV piggyback. 4. KCl 10 mEq p.o. ordered. 5. Xanax p.r.n. anxiety. 6. Astelin nasal spray. 7. Colestid 1 g p.o. b.i.d. 8. Bentyl 10 mg b.i.d. 9. Lomotil p.r.n. 10. Morphine sulfate. 11. Nystatin. 12. Protonix. 13. Zanaflex 2 mg at bedtime. 14. Tramadol p.r.n. 15. Carafate 1 g p.o. before meals and at bedtime. 16. Sodium bicarbonate 650 mg p.o. b.i.d. PHYSICAL EXAMINATION: GENERAL: Awake, alert, and oriented x3, lying supine, in no apparent distress. VITAL SIGNS: Blood pressure 118/65, afebrile, oxygen saturation 100%, and pulse rate 90. HEAD AND NECK: Cornea clear. Oral mucosa moist. LUNGS: Decreased air entry in both bases, but relatively clear. I could not appreciate any rales. HEART: S1 and S2 audible. ABDOMEN: Soft and nontender. No apparent visceromegaly. EXTREMITIES: Lower extremity examination, no edema. LABORATORY DATA: Chemistries show sodium 140, potassium 2.8, chloride 121, bicarb 12, anion gap 9.8, creatinine 1.8, calcium 6.5, magnesium 1.2, and albumin is 2.8. Urinalysis; specific gravity 1.015, this was done on the , rbc's 6-10 and wbc's 6-10. IMPRESSION: Hypokalemic, normal anion gap metabolic acidosis. Most recent urinalysis done was on the , pH was 5.5. This is most likely a distal renal tubular acidosis made worse with hypokalemia, was hypomagnesemic, has acute on chronic kidney failure, underlying chronic kidney disease 3, abdominal pain, elevated white count, strongly suspect underlying intra-abdominal sepsis, possible colitis, cholecystitis. We will recommend a CT scan of the abdomen and pelvis with oral contrast, no IV contrast. I will aggressively replace magnesium and potassium. Start IV bicarbonate. Discontinue p.o. bicarbonate. Resuscitate volume, hydrate. Obtain clinic records. Medications adjusted. Infectious Disease to see. Please see orders. MD DINA Welch/JOSE /[id number]
[2019-05-19] MEDS: SODIUM BICARBONATE 8.4% SYRING 150 ML in DEXTROSE 5% 1,000 ML IV SCH (14:36)
[2019-05-19] MEDS: VANCOMYCIN 250MG/5ML ORAL SOLN PO SCH ×2 (14:36→17:21)
--- NOTE | 2019-05-19 17:19 | Diagnostic Imaging Report ---
EXAMINATION: CHEST 2 VIEWS INDICATION: ^shayne. COMPARISON: CT chest dated 05/08/2019. Chest x-ray dated 05/08/2019 FINDINGS: PA and lateral views TUBES and LINES: None. LUNGS: Lungs are well inflated. There is no evidence of pneumonia or pulmonary edema. There is elevated left hemidiaphragm similar to prior exam. PLEURA: No pleural effusion or pneumothorax. HEART AND MEDIASTINUM: The cardiomediastinal silhouette is unremarkable. BONES AND SOFT TISSUES: No acute osseous lesion. Soft tissues are unremarkable. UPPER ABDOMEN: No free air under the diaphragm. IMPRESSION: No acute thoracic abnormality. Signed by: eJan Becerra MD on 05/19/2019 5:16 PM
--- NOTE | 2019-05-19 18:07 | Diagnostic Imaging Report ---
EXAM: CT Abdomen and Pelvis WITHOUT contrast INDICATION: Abdominal pain. COMPARISON: CT abdomen and pelvis dated 05/08/2019 TECHNIQUE: Abdomen and pelvis were scanned utilizing a multidetector helical scanner from the lung base to the pubic symphysis without administration of IV contrast. Absence of intravenous contrast decreases sensitivity for detection of focal lesions and vascular pathology. Coronal and sagittal reformations were obtained. Routine protocol was performed. IV CONTRAST: None. ORAL CONTRAST: Water RADIATION DOSE: Total DLP: 560.08 mGy*cm Estimated effective dose: (DLP x 0.015 x size factor) mSv COMPLICATIONS: None FINDINGS: LINES and TUBES: None. LOWER THORAX: Bibasilar atelectasis. Pleural calcifications in the posterior left hemithorax, unchanged (series 2, image 13) HEPATOBILIARY: A small subcentimeter calcified granuloma in the right hepatic lobe (series 2, image 17). No focal hepatic lesions. No biliary ductal dilation. GALLBLADDER: There are cholecystectomy clips. SPLEEN: No splenomegaly. There are calcified granuloma. PANCREAS: No focal masses or ductal dilatation. ADRENALS: No adrenal nodules KIDNEYS/URETERS: No hydronephrosis. There is a 1.1 cm hyperdense lesion in superior pole of the left kidney, unchanged from prior exam (series 2, image 23) and incompletely characterized on this study. There is an unchanged 1 mm nonobstructive calculus is seen in the left kidney (series 2, image 36). GI TRACT: No abnormal distention, wall thickening, or evidence of bowel obstruction. Appendix is not clearly visualized, however, no CT evidence of appendicitis. PELVIC ORGANS/BLADDER: Evaluation somewhat limited due to artifact from bilateral hip prosthesis. LYMPH NODES: No lymphadenopathy. VESSELS: There is mild atherosclerotic disease in the aorta and major arterial branches. 1.0 cm calcified splenic aneurysm at the hilum. PERITONEUM / RETROPERITONEUM: No free air or fluid. BONES: Bilateral hip prosthesis. Degenerative changes of the lumbar spine. SOFT TISSUES: Unremarkable. IMPRESSION: Unchanged nonobstructing 0.1 cm left renal calculus. Stable 1.1 cm hyperdense lesion in superior pole of the left kidney is incompletely characterized on this study. This could be a cyst containing proteinaceous material. This can be further evaluated with MR renal protocol. Signed by: Jean Becerra MD on 05/19/2019 6:04 PM
--- NOTE | 2019-05-19 18:10 | NUR ---
PICC nurse unable to do PICC line, asked if midline ok. Per Dr. Hernandes, ok to give patient midline.
--- NOTE | 2019-05-19 19:10 | Consultation ---
DATE OF CONSULTATION: 05/19/2019 REASON FOR CONSULTATION: Colitis. HISTORY OF PRESENT ILLNESS: This patient is a very pleasant 63-year-old white female, comes in with fever and chills and diarrhea. The patient who has history of knee surgery recently. The patient has history of osteoarthritis. Underwent total knee surgery recently with a knee replacement coming with fever and chills and abdominal pain and diarrhea. When she first came, her white count was elevated, it went up to 23. I am asked to see her. PAST MEDICAL HISTORY: Otherwise as above. PAST SURGICAL HISTORY: Otherwise as above. ALLERGIES: NKA. SOCIAL HISTORY: There is no smoking, drug abuse or drug abuse. FAMILY HISTORY: Unremarkable. REVIEW OF SYSTEMS: HEENT: Negative. PULMONARY: Negative. CARDIAC: Negative. : Negative. IMPRESSION: I think the patient have Clostridium difficile colitis. We will start oral vancomycin 250 mg p.o. daily. The patient's stool for Clostridium difficile. Recheck CBC. Recheck Chem panel. Supportive care. History of hypertension, history of osteoarthritis, history of electrolyte abnormality all corrected. We will follow with you clinically. MD ZOYA Hernandez/MODL /[id number]
--- NOTE | 2019-05-19 19:29 | NUR ---
Bedside shift report given to oncoming nurse. Patient is resting in bed, no s/s of acute distress noted. Call light within reach. Bed in the lowest position.
--- NOTE | 2019-05-19 20:05 | NUR ---
Received change of shift report from AM nurse. Walking rounds completed.
[2019-05-19] MEDS: TIZANIDINE HCL 4 MG TAB PO SCH (21:00)
[2019-05-20] VITALS (9 sets, daily range): BP systolic 101–155; BP diastolic 58–89
[2019-05-20] MEDS: METRONIDAZOLE 500MG/NS 100ML 100 ML IV SCH ×3 (02:00→17:44)
[2019-05-20] MEDS: NYSTATIN SUSPENSION 5 ML UDC PO SCH ×5 (05:00→22:05)
[2019-05-20] MEDS: VANCOMYCIN 250MG/5ML ORAL SOLN PO SCH ×2 (06:00)
[2019-05-20] MEDS: PANTOPRAZOLE SOD 40 MG TABEC PO SCH (06:00)
[2019-05-20 06:49] LABS: BASOPHILS # (AUTO) 0.1 (0.0-0.1); BASOPHILS % 0.4 % (0.0-1.0); HEMATOCRIT 37.1 % (34.2-44.1); HEMOGLOBIN 11.8 g/dL (12.0-16.0); LYMPHOCYTES # (AUTO) 1.5 (1.0-3.2); LYMPHOCYTES % 9.1 % (18.0-39.1); MEAN CORPUSCULAR HEMOGLOBIN 28.2 pg (28-32); MEAN CORPUSCULAR HGB CONC 31.8 g/dL (31-35); MEAN CORPUSCULAR VOLUME 88.5 fL (81-99); MONOCYTES # (AUTO) 1.8 (0.2-0.8); MONOCYTES % 10.3 % (4.4-11.3); NEUTROPHILS # (AUTO) 13.3 (2.1-6.9); NEUTROPHILS % 78.1 % (38.7-80.0); PLATELET COUNT 348 x10e3/uL (140-360); RED BLOOD COUNT 4.19 x10e6/uL (3.6-5.1)
--- NOTE | 2019-05-20 07:00 | NUR ---
RECEIVED REPORT FROM FACILITY SERVICE MANAGER NURSE, PATIENT IS A&OX3, AWAKE IN BED, NO DISTRESS NOTED, CALL LIGHT WITHIN REACH, SIDE RAILS UPX2.
[2019-05-20 07:10] LABS: ALBUMIN 2.9 g/dL (3.5-5.0); ALBUMIN/GLOBULIN RATIO 1.3 (0.8-2.0); ANION GAP 10.5 mmol/L (8-16); CREATININE, SERUM 1.6 mg/dL (0.57-1.11); MAGNESIUM 1.7 MG/DL (1.3-2.1); PHOSPHORUS 1.1 MG/DL (2.3-4.7); POTASSIUM 3.5 mmol/L (3.5-5.1)
[2019-05-20 07:14] LABS: CALCIUM 6.5 mg/dL (8.4-10.2)
--- NOTE | 2019-05-20 07:17 | NUR ---
PAGED DR. JENKINS TO NOTIFY OF CALCIUM LEVEL 6.5. AWAITING CALL BACK
--- NOTE | 2019-05-20 07:28 | NUR ---
Reno Hernandes for calcium critical lab results.
[2019-05-20] MEDS: LIDOCAINE VISC 2% SOLN 15 ML UDC PO SCH ×3 (07:30→16:21)
[2019-05-20] MEDS: SUCRALFATE 1 GM/10 ML SUSP PO SCH ×4 (07:30→22:05)
[2019-05-20] MEDS: SODIUM BICARBONATE 8.4% SYRING 150 ML in DEXTROSE 5% 1,000 ML IV SCH ×2 (07:30→13:30)
--- NOTE | 2019-05-20 08:23 | Progress Note ---
DATE: SUBJECTIVE: The patient is a 63-year-old female, who came in with acute colitis and gastrointestinal symptoms. The patient's white count did elevate yesterday, started on vancomycin 250 mg p.o. C. diff has been negative. Cultures have been negative. The patient also developed acute tubular necrosis and acidosis, started on bicarb drip at this time. The patient is also on Carafate, vancomycin, metronidazole, and has been stopped by ID. Still complains of slight abdominal pain and also slight amount of diarrhea. White count yesterday had normalized the patient's vital signs. A CT scan was done which was normal too. OBJECTIVE: VITAL SIGNS: Temperature is 96.0, afebrile, pulse of 77, respirations of 18, blood pressure is pulse oximetry 98%. HEENT: Normocephalic and atraumatic. Pupils are reactive. CVS: S1 and S2. Normal rate and rhythm. ABDOMEN: Slightly tender at the right lower quadrant and left lower quadrant. EXTREMITIES: No clubbing. No cyanosis. Trace edema. MICROBIOLOGY: Blood cultures negative. Stool cultures are pending. IMAGING STUDIES: Abdominal CT done yesterday shows stable 1.1 cm hypodense lesion left kidney, otherwise normal. ASSESSMENT: 1. Ms. Livia Esposito with metabolic acidosis. We will continue on IV sodium bicarb. 2. Acute tubular necrosis. 3. Hypokalemia, hypomagnesemia, and hypocalcemia. PLAN: Continue monitoring electrolytes and replacing as we ago. No signs of intraabdominal infection at this point of time. We will continue on IV medicines and also on p.o. vancomycin. Continue monitoring the patient's hydration is on board. Further recommendation per clinical course. Continue adjusting her lytes and possible discharge depending on progression. MD JAYLEN ReyesJ/MODL /[id number]
[2019-05-20] MEDS: COLESTIPOL HCL 1 G TAB PO SCH ×2 (08:42→16:21)
[2019-05-20] MEDS: OXYBUTYNIN CHLORIDE XL 5 MG TAB PO SCH ×2 (08:42→16:21)
[2019-05-20] MEDS: DICYCLOMINE HCL 10 MG CAP PO SCH ×2 (08:42→16:21)
[2019-05-20] MEDS: AZELASTINE HCL 137 MCG NASAL SPRAY NS SCH ×2 (08:42→16:22)
[2019-05-20] MEDS ORDERED: CALCIUM GLUCONATE 10% INJ 9.3 MEQ in SODIUM CHLORIDE 0.9% 100 ML 100 ML IV ONE (08:45)
[2019-05-20 09:21] LABS: ANISOCYTOSIS SLIGHT; LYMPHOCYTES % (MANUAL) 11 % (19-48); MONOCYTES % (MANUAL) 4 % (3.4-9.0); MYELOCYTES % (MANUAL) 1 % (0-0); NEUTROPHILS % (MANUAL) 84 % (40-74); PLATELET ESTIMATE ADEQUATE; PLATELET MORPHOLOGY COMMENT NORMAL; RBC MORPHOLOGY COMMENT NORMAL
[2019-05-20] MEDS: ALPRAZOLAM 0.5 MG TAB PO PRN ×2 (11:15→22:05)
[2019-05-20] MEDS ORDERED: POTASSIUM PHOSPHATE 20 MM in SODIUM CHLORIDE 0.9% 250ML 250 ML IV ONE (14:00)
--- NOTE | 2019-05-20 14:00 | NUR ---
DR. NAVARRO PERFORMING ROUNDS, NOTIFIED HIM THAT PATIENT HAS PITTING +3 EDEMA ON BILATERAL LOWER EXTREMITIES. NO NEW ORDERS.
--- NOTE | 2019-05-20 14:54 | NUR ---
PAGED DR. NAVARRO TO NOTIFY THAT PATIENT'S LEFT MIDLINE IS LEAKING. AWAITING RESPONSE.
--- NOTE | 2019-05-20 15:43 | NUR ---
PAGED DR. NAVARRO A SECOND TIME TO NOTIFY OF PATIENT'S LEFT MIDLINE LEAKAGE. AWAITING CALL BACK
--- NOTE | 2019-05-20 16:43 | NUR ---
Spoke to Dr. Murcia in regards to central line placement order. Per , ask Dr. Hernandes if ok to order PICC line instead and PICC nurse can try to obtain PICC line on other side. Called Dr. Hernandes and notified him of what Dr. Murcia stated, per MD ok to give patient PICC line or midline but if no success patient needs to get central line. Spoke to Dr. Murcia and notified him that Dr. Hernandes stated that patient can get PICC line or midline but if unsuccessful, patient needs to get central line. Per Dr. Murcia, "that's ok. The team can get called out."
[2019-05-20] MEDS ORDERED: CHOLESTYRAMINE 4 GM PACKET PO SCH (17:00)
--- NOTE | 2019-05-20 18:52 | NUR ---
GAVE REPORT TO ONCOMING NURSE, NO DISTRESS NOTED, CALL LIGHT WITHIN REACH. BED LOW AND LOCKED, SIDE RAIL UPX1.
--- NOTE | 2019-05-20 21:20 | NUR ---
PATIENT HAS HAD PICC LINE INSERTED IN LEFT UPPER ARM, AWAITING FOR X-RAY TO CONFIRM PLACEMENT.
--- NOTE | 2019-05-20 21:49 | Diagnostic Imaging Report ---
EXAMINATION: CHEST XRAY LINE PLACEMENT COMPARISON: Chest x-ray 05/19/2019 INDICATION: Line placement ^ ORDRERD ^[id number] ^[id number] DISCUSSION: Frontal view of the chest obtained at 2131 hours. HEART AND MEDIASTINUM: The heart is normal in size LINES: Left PICC line terminates in the SVC without pneumothorax LUNGS: Stable pulmonary hyperinflation. Linear atelectasis or scar in the base of the right lung is stable. Stable subcentimeter granuloma in the right upper lobe. Stable mild eventration of the left diaphragm. PLEURA: No pleural effusion or pneumothorax. BONES AND SOFT TISSUES: Degenerative changes of the spine. No focal osseous lesion. The soft tissues are normal. IMPRESSION: Left PICC line terminates in the SVC without pneumothorax. No new cardiothoracic findings. Signed by: Dr. Mary London MD on 05/20/2019 9:46 PM
--- NOTE | 2019-05-20 22:00 | NUR ---
PATIENT IS IN STABLE CONDITION, NO SIGNS OF DISTRESS NOTED. NEW PICC LINE IS PATENT AND INTACT, AND IV FLUIDS ARE RUNNING AT ORDERED RATED. PATIENT VOICES NO SHORTNESS OF BREATH AND IS BREATHING ON HER OWN AT 94% O2 SAT. PATIENT IS AMBULATING FROM BED TO BEDSIDE COMMODE WITH NO ISSUES. BED IS IN LOWEST POSITION, BOTH SIDE RAILS ARE UP, CALL LIGHT IS WITHIN EASY REACH, WILL CONTINUE TO MONITOR.
[2019-05-20] MEDS: TIZANIDINE HCL 4 MG TAB PO SCH (22:05)
[2019-05-21] VITALS (8 sets, daily range): BP systolic 116–135; BP diastolic 59–79
[2019-05-21] MEDS: SODIUM BICARBONATE 8.4% SYRING 150 ML in DEXTROSE 5% 1,000 ML IV SCH ×2 (01:00→15:50)
[2019-05-21] MEDS: METRONIDAZOLE 500MG/NS 100ML 100 ML IV SCH ×3 (02:19→18:00)
[2019-05-21] MEDS: NYSTATIN SUSPENSION 5 ML UDC PO SCH ×5 (04:30→20:54)
[2019-05-21 05:38] LABS: BASOPHILS % 0.1 % (0.0-1.0); HEMATOCRIT 30.8 % (34.2-44.1); HEMOGLOBIN 10.4 g/dL (12.0-16.0); LYMPHOCYTES # (AUTO) 0.9 (1.0-3.2); LYMPHOCYTES % 6.5 % (18.0-39.1); MEAN CORPUSCULAR HEMOGLOBIN 27.7 pg (28-32); MEAN CORPUSCULAR HGB CONC 33.8 g/dL (31-35); MEAN CORPUSCULAR VOLUME 82.1 fL (81-99); MONOCYTES # (AUTO) 1.6 (0.2-0.8); MONOCYTES % 11.9 % (4.4-11.3); NEUTROPHILS # (AUTO) 10.8 (2.1-6.9); NEUTROPHILS % 80.1 % (38.7-80.0); PLATELET COUNT 273 x10e3/uL (140-360); RED BLOOD COUNT 3.75 x10e6/uL (3.6-5.1); RED CELL DISTRIBUTION WIDTH 16.5 % (11.7-14.4)
[2019-05-21 06:16] LABS: ALBUMIN 2.7 g/dL (3.5-5.0); ALBUMIN/GLOBULIN RATIO 1.4 (0.8-2.0); ANION GAP 10.7 mmol/L (8-16); CREATININE, SERUM 1.66 mg/dL (0.57-1.11); MAGNESIUM 1.4 MG/DL (1.3-2.1); PHOSPHORUS 1.9 MG/DL (2.3-4.7)
[2019-05-21 06:20] LABS: CALCIUM 6.1 mg/dL (8.4-10.2); POTASSIUM 2.7 mmol/L (3.5-5.1)
[2019-05-21] MEDS: PANTOPRAZOLE SOD 40 MG TABEC PO SCH (06:22)
--- NOTE | 2019-05-21 07:25 | NUR ---
ASSESSMENT: Spiritual distress Pt homesick. Pt states "I want to go home to be with my (and her pet)." Pt states she has no children. Pt identifies as Bahai. Pt states she was "healed twelve years ago" and is praying to be healed again. Pt expressed emotions thru words and tears. Intervention: Provided empathic listening and facilitated illness review. Facilitated identification of emotions. Provided prayer. Outcome: Pt expressed appreciation for support. Will follow as able. [employer]SDR[employer]OPER [employer] Spiritual Care Department O: [phone]
[2019-05-21] MEDS: LACTASE 3,000 UNIT TAB PO SCH (08:00)
--- NOTE | 2019-05-21 08:10 | NUR ---
Paged Dr. Hernandes for a second to report critical K-2.7 and calcium-6.1. Waiting for call back.
[2019-05-21] MEDS ORDERED: MAGNESIUM SULFATE 2GM/50ML 50 ML IV ONE (08:30)
--- NOTE | 2019-05-21 08:30 | NUR ---
Spoke with Dr. Hernandes at this time to report critical labs and received orders for IV mag, IV kphos and IV K.
[2019-05-21] MEDS ORDERED: POTASSIUM PHOSPHATE 30 MM in SODIUM CHLORIDE 0.9% 250ML 250 ML IV ONE (08:45)
[2019-05-21] MEDS: AZELASTINE HCL 137 MCG NASAL SPRAY NS SCH ×2 (09:00→16:00)
[2019-05-21] MEDS: SUCRALFATE 1 GM/10 ML SUSP PO SCH ×4 (09:19→20:54)
[2019-05-21] MEDS: LIDOCAINE VISC 2% SOLN 15 ML UDC PO SCH ×3 (09:21→15:51)
[2019-05-21] MEDS: DICYCLOMINE HCL 10 MG CAP PO SCH ×2 (09:24→16:00)
[2019-05-21] MEDS: OXYBUTYNIN CHLORIDE XL 5 MG TAB PO SCH ×2 (09:24→16:00)
[2019-05-21] MEDS: ALPRAZOLAM 0.5 MG TAB PO PRN ×2 (10:23→22:01)
--- NOTE | 2019-05-21 10:58 | Progress Note ---
DATE: SUBJECTIVE: A 63-year-old female, who comes in with colitis. The patient continues to have a little bit of diarrhea, although she wants to go home, very depressed, wants to be with her . No chest pain. No shortness of breath. The patient's medications reviewed and is currently on cholestyramine, diphenoxylate sodium for her diarrhea, on Protonix and also on a bicarb drip. Getting tramadol and tizanidine as needed for muscle pains. OBJECTIVE: VITAL SIGNS: Temperature is 98, afebrile, respirations of 18, blood pressure is 135/69, and pulse oximetry of 96%. HEENT: Normocephalic and atraumatic. Pupils are reactive. CVS: S1 and S2 normal. Regular rate and rhythm. LUNGS: Decreased air entry. Otherwise clear. ABDOMEN: Nontender and nondistended. EXTREMITIES: No clubbing. No cyanosis. No edema. LABORATORY VALUES: White count is 13,000, hemoglobin of 10, hematocrit of 30.8, still has a left shift. Chemistries show sodium of 140, potassium of 2.7, BUN of 14, creatinine of 1.66, which is baseline for her. Calcium seems to be depleted still 6.1, magnesium is 1.4, total protein of 4.6, albumin of 2.17, globulin of 1.9. Serology, C. difficile is negative. ASSESSMENT: Ms. Livia Esposito with: 1. Metabolic acidosis. We will continue on IV sodium bicarbonate. 2. Acute tubular necrosis. 3. Hypokalemia, hypomagnesemia, and hypocalcemia. Electrolyte repletion is ongoing. The patient does not seem to retain potassium. Continue adjusting all lytes and monitoring her hydration. Continue on vancomycin 250 mg p.o. Further recommendation per clinical course and also we will follow up with the patient's consultants. MD KATHARINA Reyes/MODL /[id number]
--- NOTE | 2019-05-21 11:07 | Progress Note ---
DATE: ADDENDUM: We will go ahead and stop her colestipol and cholestyramine, and check her labs in the morning. MD KATHARINA Reyes/MODL /[id number]
[2019-05-21] MEDS ORDERED: POTASSIUM CHLORIDE 20MEQ/100ML 200 ML IV ONE (12:50)
--- NOTE | 2019-05-21 18:03 | NUR ---
Nutrition Screen Note RD Recommendation for Physician: - Continue current diet Plan of Care: RD following, monitoring for tolerance and adequacy Nutrition reason for involvement: LOS Primary Diagnose(s): dehydration, renal failure, hypokalemia PMH: HTN, HLD, reflux esophagitis, cholecystectomy, hip replacement Ht: 60 in Wt: 148 lb BMI: 28.9 kg/m2 IBW: [address] Assessment: (05/20) 63 YOF admitted for dehydration and acute renal failure, seen today for LOS. Pt with good appetite and po intake, noted 75% meal intake. Pt very hard of hearing, unable to obtain wt history, but denies recent wt loss. Pt with no difficulties chewing or swallowing and no GI distress. LBM 05/20. Chart reviewed. Labs and meds reviewed, noted K, Phos, and Mg replaced today. Will continue to monitor. Current Diet: Cardiac Malnutrition Evaluation (05/21/19) The patient does not meet criteria for a specified degree of malnutrition at this time. Will re-evaluate at follow-up as appropriate. Energy intake: good po intake Weight loss: no wt loss reported at admit Fat loss: none, ample triceps skinfold thickness Muscle loss: none, shoulder round Supporting Evidence: Fluid accumulation: none observed Functional Status: not assessed Diet Education Needs Assessment: Diet education not indicated. Diet tolerance: tolerating po Nutrition Care Level: low Signed: Tanja Aranda RD, LD, [facility]
--- NOTE | 2019-05-21 19:39 | NUR ---
Received bedside report from day nurse. Patient awake and sitting up in bed, no s/s of distress at this time. Bed locked and in low position, call light placed within reach. All safety measures in place. Will continue to monitor.
[2019-05-21] MEDS: TIZANIDINE HCL 4 MG TAB PO SCH (20:55)
--- NOTE | 2019-05-21 20:58 | NUR ---
Patient requesting Ativan which has reached its stop date. Paged Dr. Shen for orders. Awaiting return call at this time. Addendum: 05/21/19 at 2237 by Lakisha Washington RN PATIENT REQUESTED XANAX, NOT ATIVAN. ENTERED IN ERROR.
--- NOTE | 2019-05-21 21:48 | NUR ---
Per shannan Hill to renew patient's order for Xanax.
[2019-05-22] VITALS (7 sets, daily range): BP systolic 115–136; BP diastolic 57–83
[2019-05-22] MEDS: METRONIDAZOLE 500MG/NS 100ML 100 ML IV SCH ×3 (02:18→18:30)
[2019-05-22] MEDS: NYSTATIN SUSPENSION 5 ML UDC PO SCH ×5 (05:45→21:00)
[2019-05-22] MEDS: PANTOPRAZOLE SOD 40 MG TABEC PO SCH (05:45)
[2019-05-22 06:25] LABS: ALBUMIN 2.7 g/dL (3.5-5.0); ALBUMIN/GLOBULIN RATIO 1.4 (0.8-2.0); ANION GAP 10.5 mmol/L (8-16); CREATININE, SERUM 1.36 mg/dL (0.57-1.11); MAGNESIUM 1.6 MG/DL (1.3-2.1); POTASSIUM 3.5 mmol/L (3.5-5.1)
[2019-05-22 06:26] LABS: CALCIUM 5.7 mg/dL (8.4-10.2)
--- NOTE | 2019-05-22 06:43 | NUR ---
Dr. Shen here to see patient. Notified him of patient's calcium level of 5.7. Received orders to draw ionized calcium and to give 2 g calcium gluconate x 1.
--- NOTE | 2019-05-22 07:14 | NUR ---
Bedside report given to day nurse. Patient awake and resting in bed, no s/s of distress at this time. All safety measures in place.
[2019-05-22] MEDS: LIDOCAINE VISC 2% SOLN 15 ML UDC PO SCH ×3 (07:30→16:30)
[2019-05-22] MEDS: SUCRALFATE 1 GM/10 ML SUSP PO SCH ×4 (07:30→21:00)
--- NOTE | 2019-05-22 07:46 | Progress Note ---
DATE: SUBJECTIVE: A 63-year-old female with history of gastroenteritis, history of colitis. The patient is currently on Flagyl and bicarb drip, currently feeling better. Had a normal bowel movement today. No diarrhea movements yesterday. OBJECTIVE: VITAL SIGNS: Temperature is 96.5, pulse of 89, respirations of 19, blood pressure is 115/72, pulse oximetry of 99%. HEENT: Normocephalic and atraumatic. Pupils are reactive. CVS: S1 and S2 normal. Regular rate and rhythm. ABDOMEN: Nontender and nondistended. EXTREMITIES: No clubbing, no cyanosis, no edema. LABORATORY VALUES: Today's sodium is 140, potassium is 3.5, chloride 114, CO2 is better at 19, creatinine is better at 1.36 and calcium is trending low, however, albumin is low. Microbiology; stool culture final, blood culture final, all within normal limits. C diff is negative. ASSESSMENT: Ms. Livia Esposito with: 1. Metabolic acidosis is better. We will stop the IV sodium bicarb if okay with Dr. Willard. 2. Acute tubular necrosis. 3. Hyperkalemia, hypoalbuminemia. Check ionized calcium. Electrolyte repletion is ongoing. Potassium seems to be better. Continue to monitor the patient. Vancomycin p.o. has been discontinued. Continue Flagyl. Possible discharge if ionized calcium is normal and also if the patient is feeling better. Further recommendation per clinical course. MD KATHARINA Reyes/MODL /[id number]
[2019-05-22] MEDS: LACTASE 3,000 UNIT TAB PO SCH (08:00)
[2019-05-22] MEDS: AZELASTINE HCL 137 MCG NASAL SPRAY NS SCH ×2 (08:58→16:30)
[2019-05-22] MEDS: DICYCLOMINE HCL 10 MG CAP PO SCH ×3 (09:00→16:30)
[2019-05-22] MEDS: OXYBUTYNIN CHLORIDE XL 5 MG TAB PO SCH ×2 (09:00→16:30)
[2019-05-22] MEDS: ALPRAZOLAM 0.5 MG TAB PO PRN ×2 (09:21→22:00)
[2019-05-22] MEDS: SODIUM BICARBONATE 8.4% SYRING 150 ML in DEXTROSE 5% 1,000 ML IV SCH ×3 (11:30)
[2019-05-22] MEDS ORDERED: POTASSIUM PHOSPHATE 30 MM in SODIUM CHLORIDE 0.9% 250ML 250 ML IV SCH (13:40)
[2019-05-22] MEDS: ONDANSETRON HCL 4 MG ORAL DISINTEGRATING TAB PO PRN (13:51)
[2019-05-22] MEDS: ACETAMINOPHEN 325 MG TAB PO PRN (13:51)
[2019-05-22] MEDS: CALCIUM CARBONATE 500 MG CHEWABLE TABS PO SCH ×2 (16:29→21:00)
[2019-05-22] MEDS ORDERED: MAGNESIUM SULFATE 2GM/50ML 50 ML IV ONE (18:00)
[2019-05-22] MEDS ORDERED: CALCIUM GLUCONATE 10% INJ 9.3 MEQ in SODIUM CHLORIDE 0.9% 100 ML 100 ML IV ONE (19:15)
[2019-05-22] MEDS: TIZANIDINE HCL 4 MG TAB PO SCH (21:00)
--- NOTE | 2019-05-22 21:46 | NUR ---
ENTRY FOR 05/22/19; 0636 RECEIVED REPORT; PT. IN STABLE CONDITION WITHOUT COMPLAINT OF PAIN AT THIS TIME; PT. A & 0 X 3
[2019-05-23] VITALS (9 sets, daily range): BP systolic 98–142; BP diastolic 57–79
[2019-05-23] MEDS: METRONIDAZOLE 500MG/NS 100ML 100 ML IV SCH ×3 (02:00→19:03)
--- NOTE | 2019-05-23 03:31 | NUR ---
PT. REMAINS IN STABLE CONDITION; PT. CURRENTLY EATING A TURKEY SANDWICH AND JELLO; NO COMPLAINTS OF PAIN AT THIS TIME; VSS
[2019-05-23] MEDS: NYSTATIN SUSPENSION 5 ML UDC PO SCH ×5 (04:48→21:18)
[2019-05-23] MEDS: PANTOPRAZOLE SOD 40 MG TABEC PO SCH (05:58)
[2019-05-23] MEDS: SODIUM BICARBONATE 8.4% SYRING 150 ML in DEXTROSE 5% 1,000 ML IV SCH (05:58)
--- NOTE | 2019-05-23 06:53 | NUR ---
PT. REMAINS IN STABLE CONDITION WITHOUT REPORT OF PAIN; REPORT GIVEN TO DIEGO TUCKER RN
[2019-05-23 06:58] LABS: BASOPHILS % 0.1 % (0.0-1.0); EOSINOPHILS % 0.1 % (0.0-6.0); HEMATOCRIT 30.3 % (34.2-44.1); LYMPHOCYTES # (AUTO) 0.8 (1.0-3.2); LYMPHOCYTES % 5.9 % (18.0-39.1); MEAN CORPUSCULAR HEMOGLOBIN 27.9 pg (28-32); MEAN CORPUSCULAR VOLUME 84.6 fL (81-99); MONOCYTES # (AUTO) 1.4 (0.2-0.8); MONOCYTES % 9.7 % (4.4-11.3); NEUTROPHILS # (AUTO) 11.9 (2.1-6.9); PLATELET COUNT 297 x10e3/uL (140-360); RED BLOOD COUNT 3.58 x10e6/uL (3.6-5.1); RED CELL DISTRIBUTION WIDTH 16.6 % (11.7-14.4)
--- NOTE | 2019-05-23 06:59 | NUR ---
Bedside report given to day nurse. Patient awake and resting in bed, no s/s of distress at this time. All safety measures in place.
[2019-05-23 07:25] LABS: ALBUMIN 2.4 g/dL (3.5-5.0); ALBUMIN/GLOBULIN RATIO 1.1 (0.8-2.0); ANION GAP 11.1 mmol/L (8-16); CREATININE, SERUM 1.32 mg/dL (0.57-1.11); POTASSIUM 3.1 mmol/L (3.5-5.1)
[2019-05-23] MEDS: SUCRALFATE 1 GM/10 ML SUSP PO SCH ×3 (07:30→17:46)
[2019-05-23 07:31] LABS: CALCIUM 5.9 mg/dL (8.4-10.2)
[2019-05-23] MEDS: LACTASE 3,000 UNIT TAB PO SCH (08:00)
--- NOTE | 2019-05-23 08:06 | Progress Note ---
DATE: SUBJECTIVE: The patient came in with acute dehydration, acute gastroenteritis, and acute diarrhea. The patient is feeling better. No diarrheal movement so far, but her electrolytes are deranged. The patient wants to go home badly. Has been given warnings of not going home secondary to electrolyte derangements. OBJECTIVE: VITAL SIGNS: Temperature is 97.5, pulse of 79, respirations of 20, blood pressure is 127/61, pulse oximetry of 100%. HEENT: Normocephalic and atraumatic. Pupils are reactive. CVS: S1 and S2 normal. Regular rate and rhythm. ABDOMEN: Nontender and nondistended. EXTREMITIES: No clubbing, no cyanosis, no edema. LABORATORY VALUES: Pending today. We are waiting for calcium and magnesium levels and phosphorus levels. ASSESSMENT: Ms. Livia Esposito with, 1. Acute enteritis. 2. Metabolic acidosis. 3. Acute tubular necrosis. 4. Hyperkalemia and hypoalbuminemia. 5. Depression. 6. Obesity. PLAN: We will follow up with calcium today and replace it as needed. Potassium was better. Medications have been reviewed. Further recommendation per clinical course. If numbers are better, the patient can be discharged home today. MD KATHARINA Reyes/MODL /[id number]
[2019-05-23] MEDS: LIDOCAINE VISC 2% SOLN 15 ML UDC PO SCH ×3 (08:30→17:24)
[2019-05-23] MEDS: DICYCLOMINE HCL 10 MG CAP PO SCH ×2 (08:30→17:24)
[2019-05-23] MEDS ORDERED: CALCIUM GLUCONATE 10% INJ 9.3 MEQ in SODIUM CHLORIDE 0.9% 100 ML 100 ML IV ONE (08:30)
[2019-05-23] MEDS: AZELASTINE HCL 137 MCG NASAL SPRAY NS SCH ×2 (08:30→17:00)
[2019-05-23] MEDS: CALCIUM CARBONATE 500 MG CHEWABLE TABS PO SCH ×3 (08:30→21:18)
[2019-05-23] MEDS: OXYBUTYNIN CHLORIDE XL 5 MG TAB PO SCH ×2 (08:30→17:24)
[2019-05-23] MEDS ORDERED: CALCITRIOL 0.25 MCG CAP PO SCH (09:00)
[2019-05-23] MEDS ORDERED: POTASSIUM CHLORIDE 20MEQ/100ML 200 ML IV ONE (14:30)
[2019-05-23] MEDS ORDERED: SODIUM CHLORIDE 0.9% 250ML 250 ML ONE (14:44)
[2019-05-23] MEDS ORDERED: ERGOCALCIFEROL 50,000 UNIT CAP PO SCH (15:00)
[2019-05-23] MEDS: SPIRONOLACTONE 25 MG TAB PO SCH (17:24)
[2019-05-23] MEDS: SODIUM BICARBONATE 650 MG TAB PO SCH (17:24)
--- NOTE | 2019-05-23 18:58 | NUR ---
pt is having loose stools and states that she takes imodium at home. called Dr. Shen and left message for new orders. waiting for call back
[2019-05-23] MEDS: LOPERAMIDE HCL 2 MG CAP PO PRN (20:02)
[2019-05-23] MEDS: TIZANIDINE HCL 4 MG TAB PO SCH (21:18)
[2019-05-23] MEDS: ALPRAZOLAM 0.5 MG TAB PO PRN (21:18)
--- NOTE | 2019-05-23 22:45 | NUR ---
RECEIVED PATIENT FROM NIGHT NURSE IN STABLE CONDITION, NO SIGNS OF DISTRESS NOTED. NASAL CANNULA IS PATENT AND INTACT AND RUNNING AT 2 LITERS. PATIENT VOICES NO SHORTNESS OF BREATH AND IS BREATHING ON HER OWN AT 93% O2 SAT. PATIENT IS AMBULATING FROM BED TO BEDSIDE COMMODE WITH NO ISSUES. BED IS IN LOWEST POSITION, BOTH SIDE RAILS ARE UP, CALL LIGHT IS WITHIN EASY REACH, WILL CONTINUE TO MONITOR.
[2019-05-24] VITALS (8 sets, daily range): BP systolic 79–140; BP diastolic 47–82
[2019-05-24] MEDS: NYSTATIN SUSPENSION 5 ML UDC PO SCH ×5 (06:37→21:20)
[2019-05-24] MEDS: PANTOPRAZOLE SOD 40 MG TABEC PO SCH (06:37)
[2019-05-24] MEDS: ACETAMINOPHEN 325 MG TAB PO PRN (06:37)
--- NOTE | 2019-05-24 07:19 | NUR ---
PATIENT IN BED RESTING WITH NO S/S OF DISCOMFORT. CALL LIGHT AT REACH.
[2019-05-24] MEDS: LIDOCAINE VISC 2% SOLN 15 ML UDC PO SCH ×3 (08:00→17:21)
[2019-05-24] MEDS: LACTASE 3,000 UNIT TAB PO SCH (08:00)
[2019-05-24] MEDS: SUCRALFATE 1 GM/10 ML SUSP PO SCH ×4 (08:00→21:20)
[2019-05-24 08:14] LABS: BASOPHILS % 0.1 % (0.0-1.0); EOSINOPHILS % 0.1 % (0.0-6.0); HEMATOCRIT 31.2 % (34.2-44.1); LYMPHOCYTES % 9.7 % (18.0-39.1); MEAN CORPUSCULAR HEMOGLOBIN 27.4 pg (28-32); MEAN CORPUSCULAR HGB CONC 32.1 g/dL (31-35); MEAN CORPUSCULAR VOLUME 85.5 fL (81-99); MONOCYTES % 9.8 % (4.4-11.3); NEUTROPHILS # (AUTO) 8.1 (2.1-6.9); NEUTROPHILS % 79.3 % (38.7-80.0); PLATELET COUNT 300 x10e3/uL (140-360); RED BLOOD COUNT 3.65 x10e6/uL (3.6-5.1); RED CELL DISTRIBUTION WIDTH 16.4 % (11.7-14.4)
[2019-05-24 08:35] LABS: ALBUMIN 2.6 g/dL (3.5-5.0); ALBUMIN/GLOBULIN RATIO 1.3 (0.8-2.0); ANION GAP 9.4 mmol/L (8-16); CREATININE, SERUM 1.18 mg/dL (0.57-1.11); POTASSIUM 3.4 mmol/L (3.5-5.1)
[2019-05-24] MEDS: LOPERAMIDE HCL 2 MG CAP PO PRN ×2 (08:59→21:20)
[2019-05-24] MEDS: AZELASTINE HCL 137 MCG NASAL SPRAY NS SCH ×2 (09:00→17:00)
[2019-05-24] MEDS: DICYCLOMINE HCL 10 MG CAP PO SCH ×2 (09:07→17:21)
[2019-05-24] MEDS: SODIUM BICARBONATE 650 MG TAB PO SCH ×2 (09:07→17:21)
[2019-05-24] MEDS: OXYBUTYNIN CHLORIDE XL 5 MG TAB PO SCH ×2 (09:07→17:21)
[2019-05-24] MEDS: SPIRONOLACTONE 25 MG TAB PO SCH ×2 (09:07→17:21)
[2019-05-24] MEDS: CALCIUM CARBONATE 500 MG CHEWABLE TABS PO SCH ×3 (09:07→21:20)
[2019-05-24 09:08] LABS: CALCIUM 6.4 mg/dL (8.4-10.2)
--- NOTE | 2019-05-24 09:29 | NUR ---
SPOKE WITH MD REGARDING ABNORMAL LAB RESULT. NEW ORDER RECEIVED.
[2019-05-24] MEDS ORDERED: POTASSIUM CHLORIDE 20 MEQ TAB CR PO NR (09:30)
[2019-05-24] MEDS ORDERED: CALCIUM GLUCONATE 10% INJ 4.65 MEQ in SODIUM CHLORIDE 0.9% 50ML 50 ML IV ONE ×3 (10:00→22:00)
[2019-05-24] MEDS ORDERED: TRAMADOL HCL 50 MG TAB PO PRN (14:00)
--- NOTE | 2019-05-24 15:45 | NUR ---
PATIENT IN BED RESTING WITH NO S/S OF PAIN OR DISCOMFORT. CALL LIGHT AT REACH.
--- NOTE | 2019-05-24 16:08 | NUR ---
BLOOD DRAWN AND SENT TO THE LAB FOR SCHEDULED TEST.
[2019-05-24 17:11] LABS: CALCIUM 6.4 mg/dL (8.4-10.2)
[2019-05-24] MEDS: ALPRAZOLAM 0.5 MG TAB PO PRN (21:20)
[2019-05-24] MEDS: TIZANIDINE HCL 4 MG TAB PO SCH (21:20)
--- NOTE | 2019-05-24 21:20 | NUR ---
PATIENT IN STABLE CONDITION, NO SIGNS OF DISTRESS NOTED. NASAL CANNULA IS PATENT AND INTACT AND RUNNING AT 2 LITERS. PATIENT VOICES NO SHORTNESS OF BREATH AND IS BREATHING ON HER OWN AT 98% O2 SAT. IV CALCIUM GLUCONATE HAS BEEN STARTED AND PATIENT IS AMBULATING FROM BED TO BEDSIDE COMMODE WITH NO ISSUES. BED IS IN LOWEST POSITION, BOTH SIDE RAILS ARE UP, CALL LIGHT IS WITHIN EASY REACH, WILL CONTINUE TO MONITOR.
[2019-05-25] VITALS: BP 82/47
[2019-05-25 03:47] LABS: BASOPHILS % 0.2 % (0.0-1.0); EOSINOPHILS % 0.1 % (0.0-6.0); HEMATOCRIT 31.7 % (34.2-44.1); HEMOGLOBIN 10.1 g/dL (12.0-16.0); LYMPHOCYTES % 7.7 % (18.0-39.1); MEAN CORPUSCULAR HEMOGLOBIN 27.7 pg (28-32); MEAN CORPUSCULAR HGB CONC 31.9 g/dL (31-35); MEAN CORPUSCULAR VOLUME 86.8 fL (81-99); MONOCYTES # (AUTO) 1.1 (0.2-0.8); NEUTROPHILS # (AUTO) 10.3 (2.1-6.9); NEUTROPHILS % 82.1 % (38.7-80.0); PLATELET COUNT 314 x10e3/uL (140-360); RED BLOOD COUNT 3.65 x10e6/uL (3.6-5.1); RED CELL DISTRIBUTION WIDTH 16.4 % (11.7-14.4)
[2019-05-25 03:58] LABS: ANION GAP 9.8 mmol/L (8-16); CREATININE, SERUM 1.21 mg/dL (0.57-1.11); POTASSIUM 3.8 mmol/L (3.5-5.1)
[2019-05-25 04:00] VITALS: BP 134/71
[2019-05-25] MEDS: PANTOPRAZOLE SOD 40 MG TABEC PO SCH (04:03)
[2019-05-25] MEDS: LOPERAMIDE HCL 2 MG CAP PO PRN (04:03)
[2019-05-25] MEDS: NYSTATIN SUSPENSION 5 ML UDC PO SCH (05:22)
[2019-05-25] MEDS ORDERED: CALCIUM GLUCONATE 10% INJ 9.3 MEQ in SODIUM CHLORIDE 0.9% 100 ML 100 ML IV ONE (07:15)
--- NOTE | 2019-05-25 07:15 | NUR ---
PATIENT IN BED RESTING WITH NO S/S OF DISTRESS. BED IN LOWER POSITION AND LOCKED, CALL LIGHT AT REACH.
[2019-05-25] MEDS: SUCRALFATE 1 GM/10 ML SUSP PO SCH (07:30)
[2019-05-25] MEDS: LIDOCAINE VISC 2% SOLN 15 ML UDC PO SCH (07:30)
[2019-05-25 08:00] VITALS: BP 120/60
[2019-05-25 08:01] VITALS: BP 120/60
[2019-05-25] MEDS: ONDANSETRON HCL 4 MG ORAL DISINTEGRATING TAB PO PRN (08:20)
[2019-05-25] MEDS: LACTASE 3,000 UNIT TAB PO SCH (08:37)
[2019-05-25] MEDS: AZELASTINE HCL 137 MCG NASAL SPRAY NS SCH (09:00)
[2019-05-25] MEDS: SODIUM BICARBONATE 650 MG TAB PO SCH (09:11)
[2019-05-25] MEDS: OXYBUTYNIN CHLORIDE XL 5 MG TAB PO SCH (09:11)
[2019-05-25] MEDS: DICYCLOMINE HCL 10 MG CAP PO SCH (09:11)
[2019-05-25] MEDS: CALCIUM CARBONATE 500 MG CHEWABLE TABS PO SCH (09:11)
[2019-05-25] MEDS: SPIRONOLACTONE 25 MG TAB PO SCH (09:11)
[2019-05-25 11:30] VITALS: BP 122/60
--- NOTE | 2019-05-25 11:50 | NUR ---
PATIENT DISCHARGED HOME. DISCHARGE INSTRUCTIONS, PRESCRIPTION, AND FOLLOW UP GIVEN TO PATIENT, SHE VERBALIZED UNDERSTANDING. PICC LINE TO LEFT UPPER ARM REMOVED WITH TIP INTACT, PRESSURE APPLIED FOR 5 MINUTES. ALL PERSONAL ITEMS TAKEN WITH PATIENT. LEFT UNIT PER WHEEL CHAIR TO FRONT LOBBY IN STABLE CONDITION.
== END 2019-05-25 11:35 | disposition home or self-care (01) | DRG 871 ==
LOC: ER 13:32 → ERHOLD 13:39 → MED/SURG3 18:49 → OBSVTOIN 05-15 11:01
PROVIDERS: ADMIT Family Medicine; ATTEND Family Medicine
PROC: 0S9C3ZX Drainage of Right Knee Joint, Percutaneous Approach, Diagnostic (ICD-10-PCS; principal; 2019-05-16)
PROC: 3E0U33Z Introduction of Anti-inflammatory into Joints, Percutaneous Approach (ICD-10-PCS; 2019-05-16)
PROC: 3E0U3BZ Introduction of Anesthetic Agent into Joints, Percutaneous Approach (ICD-10-PCS; 2019-05-16)
PROC: 02HV33Z Insertion of Infusion Device into Superior Vena Cava, Percutaneous Approach (ICD-10-PCS; 2019-05-20)
PROC: B548ZZA Ultrasonography of Superior Vena Cava, Guidance (ICD-10-PCS; 2019-05-20)
DX: A41.9 Sepsis, unspecified organism (principal); N17.0 Acute kidney failure with tubular necrosis; N17.9 Acute kidney failure, unspecified; E87.2 Acidosis; Z94.0 Kidney transplant status; M17.11 Unilateral primary osteoarthritis, right knee; E86.0 Dehydration; E87.6 Hypokalemia; E78.5 Hyperlipidemia, unspecified; K21.0 Gastro-esophageal reflux disease with esophagitis; Z85.3 Personal history of malignant neoplasm of breast; Z90.49 Acquired absence of other specified parts of digestive tract; Z82.49 Family history of ischemic heart disease and other diseases of the circulatory system; Z83.3 Family history of diabetes mellitus; Z96.643 Presence of artificial hip joint, bilateral; M25.461 Effusion, right knee; Z88.1 Allergy status to other antibiotic agents; Z88.5 Allergy status to narcotic agent; Z88.8 Allergy status to other drugs, medicaments and biological substances; E83.42 Hypomagnesemia; N18.3 Chronic kidney disease, stage 3 (moderate); N25.89 Other disorders resulting from impaired renal tubular function; D64.9 Anemia, unspecified; H91.90 Unspecified hearing loss, unspecified ear; E66.9 Obesity, unspecified; Z68.28 Body mass index [BMI] 28.0-28.9, adult; E83.51 Hypocalcemia; K29.70 Gastritis, unspecified, without bleeding; K52.9 Noninfective gastroenteritis and colitis, unspecified; E88.09 Other disorders of plasma-protein metabolism, not elsewhere classified; I12.9 Hypertensive chronic kidney disease with stage 1 through stage 4 chronic kidney disease, or unspecified chronic kidney disease
CPT/HCPCS: 36415; 36569; 71046; 74176; 80048; 80053; 81001; 82310; 82550; 82553; 82948; 83605; 83735; 84100; 84132; 84484; 84550; 85025; 87040; 87045; 87493; 96361; 97139; 99284; G0378; J0610; J1956; J2270; J2405; J3475; J3480; J7030; J7040; J7050; J7070; Q0162

== ENCOUNTER 2019-12-18 14:55 | Outpatient (RCR) | payer MEDICARE ==
[~2019-12-18 14:55] MED LIST changes: +ALPRAZOLAM0.5 MG PO; +AZELASTINE137 MCG/0.; +DICYCLOMINE HCL10 MG PO; +DIPHENOXYLATE-1 EACH PO; +LEVOCETIRIZINE D5 MG PO; +METRONIDAZOLE250 MG PO; +MORPHINE SULFATE/PF 1 MG/1 ML 10ML VIAL ONE; +OXYBUTYNIN CHLOR5 M1 PO; +ULTRAM50 MG PO; +ZOFRAN4 MG PO
== END 2019-12-20 ==
LOC: PT 14:55
PROVIDERS: ATTEND Specialist
DX: S42.42 Comminuted supracondylar fracture without intercondylar fracture of humerus (principal)

== ENCOUNTER 2019-12-26 14:55 | Outpatient (RCR) | payer MEDICARE ==
[~2019-12-26 14:55] MED LIST changes: -MORPHINE SULFATE/PF 1 MG/1 ML 10ML VIAL ONE
== END 2020-01-19 ==
LOC: PT 14:55
PROVIDERS: ATTEND Specialist
DX: M17.0 Bilateral primary osteoarthritis of knee (principal); M62.81 Muscle weakness (generalized); M25.562 Pain in left knee; M25.561 Pain in right knee; M25.662 Stiffness of left knee, not elsewhere classified; M25.661 Stiffness of right knee, not elsewhere classified; R26.2 Difficulty in walking, not elsewhere classified
CPT/HCPCS: 97139

== ENCOUNTER 2020-05-08 08:26 | Emergency (ER) | payer MEDICARE ==
[~2020-05-08] VITALS: Ht 304.8 cm; Wt 67.1 kg
[2020-05-08] MEDS ORDERED: TETANUS/DIPHTHERIA TOX ADULT 0.5 ML SYR IM ONE (08:45)
[2020-05-08] MEDS ORDERED: DIAZEPAM 2 MG TAB PO NR (11:00)
[2020-05-08] MEDS ORDERED: ACETAMINOPHEN 325 MG TAB PO NR (12:15)
[2020-05-08] MEDS ORDERED: ACETAMINOPHEN 325 MG TAB ONE (12:54)
[2020-05-08 14:44] VITALS: BP 141/69
== END 2020-05-08 14:58 | disposition home or self-care (01) ==
LOC: ER 08:32
DX: S00.83XA Contusion of other part of head, initial encounter (principal); S61.412A Laceration without foreign body of left hand, initial encounter; W01.0XXA Fall on same level from slipping, tripping and stumbling without subsequent striking against object, initial encounter; Y93.01 Activity, walking, marching and hiking; Y92.008 Other place in unspecified non-institutional (private) residence as the place of occurrence of the external cause; I10 Essential (primary) hypertension; E78.5 Hyperlipidemia, unspecified; F41.9 Anxiety disorder, unspecified; K21.9 Gastro-esophageal reflux disease without esophagitis; N18.9 Chronic kidney disease, unspecified; Q86.0 Fetal alcohol syndrome (dysmorphic)
CPT/HCPCS: 70450; 72125; 90714; 99284

== ENCOUNTER 2020-05-20 14:33 | Emergency (ER) | payer OTHER, MEDICARE ==
[~2020-05-20] VITALS: Ht 165.1 cm; Wt 67.1 kg
[2020-05-20] MEDS ORDERED: HYDROCODONE/APAP 7.5MG-325MG 1 EA TAB PO ONE (16:30)
[2020-05-20] MEDS ORDERED: KETOROLAC TROMETHAMINE 60 MG/2 ML VIAL IM ONE (16:30)
[2020-05-20] MEDS ORDERED: HYDROCODON-ACE1 EA11 PO (16:51)
== END 2020-05-20 20:00 | disposition home or self-care (01) ==
LOC: ER 15:19
DX: S42.212A Unspecified displaced fracture of surgical neck of left humerus, initial encounter for closed fracture (principal); W01.0XXA Fall on same level from slipping, tripping and stumbling without subsequent striking against object, initial encounter; Y92.019 Unspecified place in single-family (private) house as the place of occurrence of the external cause; I10 Essential (primary) hypertension; Z88.1 Allergy status to other antibiotic agents; Z88.5 Allergy status to narcotic agent; Z88.8 Allergy status to other drugs, medicaments and biological substances
CPT/HCPCS: 70450; 72125; 73030; 73060; 99284; J1885

== ENCOUNTER → 2022-05-04 | Day surgery (SDC) | payer MEDICARE ==
[2022-04-28 10:32] LABS: BASOPHILS # (AUTO) 0.1 (0.0-0.1); BASOPHILS % 0.6 % (0.0-1.0); EOSINOPHILS # (AUTO) 0.3 (0.0-0.4); EOSINOPHILS % 3.6 % (0.0-6.0); HEMATOCRIT 38.6 % (34.2-44.1); LYMPHOCYTES # (AUTO) 1.5 (1.0-3.2); LYMPHOCYTES % 19.1 % (18.0-39.1); MEAN CORPUSCULAR HEMOGLOBIN 29.7 pg (28-32); MEAN CORPUSCULAR HGB CONC 31.1 g/dL (31-35); MEAN CORPUSCULAR VOLUME 95.5 fL (81-99); MONOCYTES # (AUTO) 0.9 (0.2-0.8); MONOCYTES % 11.6 % (4.4-11.3); NEUTROPHILS # (AUTO) 5.1 (2.1-6.9); NEUTROPHILS % 64.8 % (38.7-80.0); PLATELET COUNT 244 x10e3/uL (140-360); RED BLOOD COUNT 4.04 x10e6/uL (3.6-5.1); RED CELL DISTRIBUTION WIDTH 12.9 % (11.7-14.4)
[2022-04-28 10:51] LABS: INR 0.94; PROTHROMBIN TIME 13.1 seconds (11.9-14.5)
[2022-04-28 10:52] LABS: PARTIAL THROMBOPLASTIN TIME 28.4 seconds (23.8-35.5)
[2022-04-28 10:55] LABS: CALCIUM 9.1 mg/dL (8.4-10.2); CREATININE, SERUM 2.14 mg/dL (0.57-1.11)
[~2022-05-04] MED LIST changes: +ALBUTEROL SULFATE HFA 8GM INHALATION AEROSOL INH ONE; +AMLODIPINE BESYL5 MG PO; +BALANCED SALT SOLN (OPTH) 15 ML BTL IO ONE; +BUPIVACAINE HC 0.75% PF 10ML VIAL INJ ONE; +CALCITRIOL0.25 MCG PO; +CYCLOPENTOLATE HCL 2% OPTH SOLN 2 ML BTL OP ONE; +DEXTROSE 5% 250ML 250 ML IV ONE; +EPHEDRINE SULFATE INJ 50 MG/ML VIAL ONE; +EPINEPHRINE HCL 1:1000 1ML 1 MG/ML AMP ONE; +FARXIGA5 MG PO; +GATIFLOXACIN(OPTH) 5 ML LIQD ONE; +HYDROCODON-ACE1 EA11 PO; +LIDOCAINE HCL 2% LOCAL INJ 5 ML SDV VIAL INJ ONE; +LIDOCAINE HCL-PF 4% 40 MG/1 ML 5ML AMP ONE; +ONDANSETRON HCL INJ 2MG/ML 2ML 2 MG/ML VIAL ONE; +PHENYLEPHRINE HCL 1% 10 MG/ML VIAL ONE; +PHENYLEPHRINE HCL 2 ML DROPS ONE; +PILOCARPINE HCL(OPTH) 15 ML LIQD ONE; +POVIDONE IODINE 0.05% 0.05 % ML PO ONE; +POVIDONE IODINE 5% (OPTH) 30 ML BTL ONE; +PROPOFOL IV EMULSION 10 MG/ML 20 ML VIAL ONE; +SEVOFLURANE INHAL SOLN 250 ML PEN BTL ONE; +SODIUM BICARBO650 MG PO; +TOBRAMYCIN/DEXAMETHASONE(OPTH) 3.5 GM TUBE ONE; +TYLENOL325 MG PO; +VITAMIN D250 MCG PO
[2022-05-04 09:05] VITALS: BP 123/68
== END | disposition home or self-care (01) ==
LOC: OR 07:41
PROVIDERS: ATTEND Ophthalmology
DX: H25.11 Age-related nuclear cataract, right eye (principal); D64.9 Anemia, unspecified; E11.22 Type 2 diabetes mellitus with diabetic chronic kidney disease; I13.0 Hypertensive heart and chronic kidney disease with heart failure and stage 1 through stage 4 chronic kidney disease, or unspecified chronic kidney disease; N18.4 Chronic kidney disease, stage 4 (severe); I50.9 Heart failure, unspecified; K21.9 Gastro-esophageal reflux disease without esophagitis; K50.90 Crohn's disease, unspecified, without complications; F41.9 Anxiety disorder, unspecified; Z88.6 Allergy status to analgesic agent; Z88.1 Allergy status to other antibiotic agents; Z01.810 Encounter for preprocedural cardiovascular examination; Z01.812 Encounter for preprocedural laboratory examination; Z79.84 Long term (current) use of oral hypoglycemic drugs; Z79.899 Other long term (current) drug therapy; Z96.21 Cochlear implant status
CPT/HCPCS: 36415 ×2; 66984; 80048; 82948; 85025; 85610; 85730; 93005; J0171; J2001; J2370; J2405; J2704; J7070; V2632